=== PATIENT | male | born 1935 | race Caucasian/White ===

== ENCOUNTER 2017-07-12 12:30 | Outpatient (RCR) | payer MEDICARE, SELFPAY ==
--- NOTE | 2017-07-09 14:51 | HP.PTEVAL ---
Patient's Visit Information DANYELLE MCKEON is a 82 year old M referred to Physical Therapy by Raji Xavier MD with a diagnosis of LBP muscular. Date of Evaluation: 07/09/17 Physical Therapist: MARTINA RandT, OC - Visit Plan Frequency: 2x /Week Duration: 2-4 Weeks Plan: 2x/week for 2-4 weeks for ... 1. STM and thermal US to L upper gluteal tender area. 2. Stretch same with LB ROM and progress to HEP. 3. Strengthening L gluts and abductors and progress to EHP. - Subjective Subjective: Hurt back in April as he was on top of the camper sitting on knees chiseling for 3 hours. Coulldcarol make it in the house that day. Saw Dr. Xavier and sent for PT buit did not come. Saw chiropractor and it got better and he got the flu for 4 weeks lying on back. One spot remains in LB L buttock. Sitting and transferring and getting in and out of car really hurts. Sitting is not a problem. It can get worse wit walking more than a half mile. Sleeping is painful to roll over, can wake him up when he rolls. Activities are normal but has admittedly been inactive due to the flu. Worked in shop 4 hours the other day, got tired quick and back hurt a little bit. 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 Pain up to 0-3/10 in last few days. No numbness or tingling complaints in legs. Coughing or sneezing are OK. No pain meds. Xrays were OK. No other health problems, Hearts and lungs are OK. Had CABGx2. Had 3 strokes. 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 No f/u scheduled. - Objective Patient walks back to [facility] room I and without antalgia. Has some minor discomfort getting out of chair and bed transfers llifting hips. L/S aROM ext mod limited, flexion min limited, SB min limited all without pain. reflexes 2/3 patella and achilles. Sensation WNL to gross light touch in LE. Strength LE 4/5, glutesd 4- B no pain. Tender to touch L upper gluteal muscular origin on pelvis max. - L/S compression, - PA testing in LB. - Goals Goal 1:: Pain 99% improved and gone from L LB Goal Time Frame: 2-4 Weeks Goal 2:: No tenderness in L upper gluteal area. Goal Time Frame: 2-4 Weeks Goal 3:: Patient sleep without waking at night Goal Time Frame: 2-4 Weeks - Rehabilitation Potential Physical Therapy Diagnosis: Gluteal strain, muscular. Rehabilitation Potential: Fair - Anticipated Interventions Patient/Client Instruction: Educate patient on: Condition, Plan of Care For the Purpose of:: To decrease pain, To improve ability of physical actions for home/community/work/leisure Therapeutic Exercise to Include: Strength training, Flexibilty training, Passive ROM, Active ROM For the Purpose of:: To decrease pain, To improve nutrient delivery to tissue, To increase oxygenation perfusion, To improve ability of physical actions for home/community/work/leisure Manual Therapy Techniques to Include: Soft tissue mobilization For the Purpose of:: To decrease pain, To improve nutrient delivery to tissue Ultrasound (thermal/non thermal): Yes - thermal L glut For the Purpose of:: To improve nutrient delivery to tissue Thank you for the opportunity to evaluate your patient. For Medicare and Medicare HMO plans, please review the plan of care and approve it. It will need to be FAXED BACK to us at [phone] for Medicare purposes. Please let me know if there are questions or concerns regarding this plan of care. Physician Signature: Date:
--- NOTE | 2017-10-12 09:52 | HP.PT.NRP ---
HP - Discharge Summary (1) - Patient Information DANYELLE MCKEON was seen in my office for initial evaluation on 07/09/17. The following Plan of Care was established for this patient: Initial Frequency: 2x /Week Initial Duration: 2-4 Weeks - Anticipated Interventions Patient/Client Instruction: Educate patient on: Condition, Plan of Care For the Purpose of:: To decrease pain, To improve ability of physical actions for home/community/work/leisure Therapeutic Exercise to Include: Strength training, Flexibilty training, Passive ROM, Active ROM For the Purpose of:: To decrease pain, To improve nutrient delivery to tissue, To increase oxygenation perfusion, To improve ability of physical actions for home/community/work/leisure Manual Therapy Techniques to Include: Soft tissue mobilization For the Purpose of:: To decrease pain, To improve nutrient delivery to tissue Ultrasound (thermal/non thermal): Yes - thermal L glut For the Purpose of:: To improve nutrient delivery to tissue This patient was last seen in our office 07/12/17. Pertinent comments regarding their Physical therapy will appear below: Pt seen 2 visits of his plan of care. He cancelled the rest of it as he was feeling good and not having any more pain. At this point, I will discontinue due to nonattendance. At this point I will be discontinuing this patient from physical therapy. I would be happy to see this patient again in the future if found appropriate by the physician. Thank you! Manas Chinchilla, DPT, OC
== END 2017-07-12 19:00 | disposition home or self-care (01) ==
LOC: PT 12:30
PROVIDERS: Family Provider Family Medicine; PCP Family Medicine; Visit Provider Family Medicine
DX: M54.5 Low back pain (principal)
CPT/HCPCS: 97035; 97110; 97162

== ENCOUNTER 2017-08-25 10:35 | Emergency (ER) | payer MEDICARE, SELFPAY ==
[2017-08-25 10:36] VITALS: BP 116/74; PULSE 72; RESP 14; TEMP 36.4; O2SAT 93; BMI 28.6
--- NOTE | 2017-08-25 11:20 | RAD_ITS ---
STUDY: X-RAY - LEFT HAND, ATTENTION FIFTH FINGER REASON FOR EXAM: Male, 82 years old. Laceration TECHNIQUE: Three view(s) of the finger were obtained. COMPARISON: None. FINDINGS: Bones: There is cortical disruption in the mid shaft of the distal phalanx. Joints: The visualized joints are unremarkable. Soft tissues: Soft tissue swelling is present. There are faint radiopaque densities in the distal soft tissues. Foreign body: None RAD/Finger(s) Min 2 Views IMPRESSION: There is osseous involvement in the mid shaft of the fifth distal phalanx. There are faint radiopaque densities in the distal soft tissues. Electronically Signed: Sherron Vital MD at 11:47 EDT Tel Direct: [phone], Service support ,
[2017-08-25] MEDS: Bupivacaine Mpf 0.5% 30 ML VIAL INFILT (11:49)
[2017-08-25] MEDS: Diphth,Pertuss(Acell),Tet Vac 0.5 ML Vial IM (11:49)
--- NOTE | 2017-08-25 11:57 | ED.VISSUMM ---
- ER Visit Summary Date of Service: 08/25/17 Chief Complaint: Left fifth finger injury History of Present Illness: The patient is a 82 M who cut his left fifth finger on a table saw this morning. Patient is right-hand dominant. He does not know his last tetanus update. He is currently on Plavix. Physical Examination: Vital signs are unremarkable. Head neck examination is unremarkable with no sign of trauma. Heart is regular rate and rhythm. Left upper extremity examination reveals an irregular laceration to the distal radial aspect of the left fifth finger. Nail is intact. He has full range of motion, normal cap refill distally, and normal sensation. Test Results: Left fifth finger x-rays reveal fracture of the fifth distal phalanx. There is faint radiopaque densities in the distal soft tissues. Emergency Department Course and Treatment: Tetanus update is provided. Digital block is performed with 50-50 mix of lidocaine and bupivacaine. Wound is thoroughly irrigated. Skin is closed as best as possible with 7 simple interrupted sutures of 5-0 nylon. Much of the tissue is macerated and will not hold stitch. Surgifoam was placed over the wound followed by gauze dressing and AlumaFoam splint. Patient will be treated with antibiotics. He is to follow-up in 3-4 days for a wound check. Treatment Plan: [] Disposition: Discharge Impression: 1. Open fracture left fifth finger 2. Left fifth finger laceration status post suture This note was generated with 1calendar dictation software. It may contain incorrect words, spelling, and punctuation that were not noted in review of the chart prior to signing ED Disposition - Plan for ED Patient: Disposition: Home or Assisted Living Chief Complaint: Laceration Instructions: ED Fx Finger Open Prescriptions: Cephalexin [Keflex] 500 mg PO Q6 #40 capsule Referrals: Raina Rae MD [Primary Care Provider] - 3-5 Days
[2017-08-25 12:06] VITALS: BP 118/72; PULSE 82; RESP 16; O2SAT 98
== END 2017-08-25 12:13 | disposition home or self-care (01) ==
PROVIDERS: Emergency Provider Emergency Medicine; Family Provider Internal Medicine; PCP Internal Medicine
DX: S62.637B Displaced fracture of distal phalanx of left little finger, initial encounter for open fracture (principal); S61.217A Laceration without foreign body of left little finger without damage to nail, initial encounter; W31.2XXA Contact with powered woodworking and forming machines, initial encounter; Y93.9 Activity, unspecified; Y92.9 Unspecified place or not applicable; I25.10 Atherosclerotic heart disease of native coronary artery without angina pectoris; I10 Essential (primary) hypertension; E03.9 Hypothyroidism, unspecified; Z79.01 Long term (current) use of anticoagulants; Z79.899 Other long term (current) drug therapy; Z87.891 Personal history of nicotine dependence
CPT/HCPCS: 12001; 73140; 90715; 99283

== ENCOUNTER 2017-09-03 08:44 | Observation (INO) | payer MEDICARE, SELFPAY ==
[2017-09-03] VITALS (13 sets, daily range): BP systolic 101–121; BP diastolic 59–72; PULSE 57–74; RESP 10–18; TEMP 35.8–36.7; O2SAT 93–97; BMI 30.6; BMI 28.7
--- NOTE | 2017-09-03 09:01 | NURSING ---
NO LW OR POA
--- NOTE | 2017-09-03 09:07 | CT_ITS ---
STUDY: CT BRAIN WITHOUT CONTRAST REASON FOR EXAM: Male, 82 years old. Unresponsive RADIATION DOSAGE (If Supplied By Facility): CTDIvol = ( 44.99 ) mGy, DLP = ( 762.36 ) mGycm TECHNIQUE: Transaxial CT imaging of the brain was performed without administration of intravenous contrast material. Individualized dose optimization techniques were used for this CT. COMPARISON: 2015 FINDINGS: Normal soft tissue structures. Normal calvarium. There is mild cerebral atrophy with widening of the extra-axial spaces and ventricular dilatation. There are areas of decreased attenuation within the white matter tracts of the supratentorial brain, consistent with microvascular disease changes. Old lacunar infarct in the left basal ganglia Normal brainstem. Normal cerebellum. Stable vascular calcifications There is no intracranial hemorrhage. There are no findings of an acute ischemic infarction. Normal visualized paranasal sinuses. CT/Brain/Head without Contrast IMPRESSION: Chronic involutional changes of the brain. No acute hemorrhage or significant interval change Electronically Signed: Emmanuel Fierro MD at 9:48 EDT , Service support ,
--- NOTE | 2017-09-03 09:07 | EKG12_ITS ---
Test Reason : SYNCOPE Blood Pressure : / mmHG Vent. Rate : 062 BPM Atrial Rate : 062 BPM P-R Int : 196 ms QRS Dur : 108 ms QT Int : 410 ms P-R-T Axes : 033 -48 071 degrees QTc Int : 416 ms Sinus rhythm with Premature atrial complexes Left anterior fascicular block Abnormal ECG Confirmed by CALI PEREZ, JESSEE ([id number]), medical editor DEBORA LAMAR ([id number]) on 09/04/2017 1:15:23 PM Referred By: DONNA Confirmed By:JESSEE LEIVA MD
--- NOTE | 2017-09-03 09:07 | RAD_ITS ---
STUDY: X-RAY CHEST REASON FOR EXAM: Male, 82 years old. Chest pain, syncope TECHNIQUE: Single AP portable view of the chest. COMPARISON: 06/12/2017 FINDINGS: EKG leads overlie the chest Lungs are expanded with lingular opacification suggesting atelectasis though infiltrate cannot be excluded. No demonstrated effusion, follow-up recommended to assure resolution. Sternal cerclage wires and vascular clips are present from a prior sternotomy and coronary artery bypass graft procedure (CABG). Normal mediastinum and diane. Normal visualized pulmonary arteries. Normal visualized aortic arch and descending thoracic aorta. Normal visualized thoracic spine. Normal visualized ribs, clavicles, and shoulders. There is no demonstrated abnormality of the visualized soft tissue structures of the upper abdomen. RAD/Chest 1 View (Portable) IMPRESSION: Lingular opacification suggests atelectasis or infiltrate. Follow-up recommended to assure resolution Electronically Signed: Emmanuel Fierro MD at 9:49 EDT , Service support ,
--- NOTE | 2017-09-03 09:11 | ED.VISSUMM ---
- ER Visit Summary Date of Service: 09/03/17 Chief Complaint: Unresponsive episode History of Present Illness: The patient is a 82 M that had an unresponsive episode this morning. The patient was following up to have sutures removed from a fingertip avulsion on his left hand. He had a lot of pain does not remember passing out. He was unresponsive for several minutes and then woke up spontaneously. It sounds like the clinic staff may have been doing CPR on him. I am unsure if he had a pulse or not. EMS did note some snoring respirations, but he regained consciousness spontaneously. His King score was negative and his blood sugar was normal. The patient says he never had anything like this in the past. He had no other symptoms leading up to this and he has no symptoms now. He does have a history of coronary disease and stroke. 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 Physical Examination: Blood pressure 101/72. Family states this is his baseline. Otherwise vitals unremarkable. He is alert and oriented. No acute distress. Head atraumatic. Cranial nerves grossly intact. Heart regular. Lungs clear. Abdomen soft. He has a left index finger tip avulsion with a scab and [address]. No sign of overlying infection. Moves all extremities, no focal or lateralizing neurologic abnormalities on exam. Test Results: EKG showed sinus rhythm at a rate of 62. No sign of acute ischemia or infarction pattern. Will check chest x-ray, CT head, labs, troponin, and orthostatics. Emergency Department Course and Treatment: Sutures were removed from his left fingertip wound site. He was placed on a monitor. IV in place. Will evaluate for syncope. Workup was unremarkable. Patient remained stable. No new or worsening symptoms. Given his syncope and history of coronary disease, I called the hospitalist for admission. Treatment Plan: As above Disposition: Admission Impression: 1. Syncopal episode This note was generated with [employer] dictation software. It may contain incorrect words, spelling, and punctuation that were not noted in review of the chart prior to signing ED Disposition - Plan for ED Patient: Disposition: Acute Care Hospital [facility] Chief Complaint: Syncope
--- NOTE | 2017-09-03 09:14 | ED.DCSUM_ITS ---
- ER Visit Summary Date of Service: 09/03/17 Chief Complaint: Unresponsive episode History of Present Illness: The patient is a 82 M that had an unresponsive episode this morning. The patient was following up to have sutures removed from a fingertip avulsion on his left hand. He had a lot of pain does not remember passing out. He was unresponsive for several minutes and then woke up spontaneously. It sounds like the clinic staff may have been doing CPR on him. I am unsure if he had a pulse or not. EMS did note some snoring respirations , but he regained consciousness spontaneously. His Center score was negative and his blood sugar was normal. The patient says he never had anything like this in the past. He had no other symptoms leading up to this and he has no symptoms now. He does have a history of coronary disease and stroke. 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 Physical Examination: Blood pressure 101/72. Family states this is his baseline. Otherwise vitals unremarkable. He is alert and oriented. No acute distress. Head atraumatic. Cranial nerves grossly intact. Heart regular. Lungs clear. Abdomen soft. He has a left index finger tip avulsion with a scab and [address]. No sign of overlying infection. Moves all extremities, no focal or lateralizing neurologic abnormalities on exam. Test Results: EKG showed sinus rhythm at a rate of 62. No sign of acute ischemia or infarction pattern. Will check chest x-ray, CT head, labs, troponin , and orthostatics. Emergency Department Course and Treatment: Sutures were removed from his left fingertip wound site. He was placed on a monitor. IV in place. Will evaluate for syncope. Workup was unremarkable. Patient remained stable. No new or worsening symptoms. Given his syncope and history of coronary disease, I called the hospitalist for admission. Treatment Plan: As above Disposition: Admission Impression: 1. Syncopal episode This note was generated with [employer] dictation software. It may contain incorrect words, spelling, and punctuation that were not noted in review of the chart prior to signing ED Disposition - Plan for ED Patient: Disposition: Acute Care Hospital [facility] Chief Complaint: Syncope
[2017-09-03 09:25] LABS: Hematocrit 43.8 % (40-54); Hemoglobin 14.9 g/dl (13.0-16.5); Mean Corpuscular Hgb 33.2 pg (27.0-32.0); Mean Corpuscular Volume 97.6 fL (80-94); Mean Platelet Vol. 9.8 fl (6.2-12.0); Platelet Count 199 K/mm3 (150-450); RBC Distribution Width CV 16.3 % (11.6-14.6); RBC Distribution Width SD 56.6 fl (35.1-43.9); Red Blood Count 4.49 M/mm3 (4.6-6.2); White Blood Count 8.7 K/mm3 (4.4-11.0)
[2017-09-03 09:26] LABS: Differential Indicated MANUAL DIFF; POSITIVE COUNT NO; POSITIVE DIFFERENTIAL NO; POSITIVE MORPHOLOGY YES
[2017-09-03 09:41] LABS: Anion Gap 8 (5-15); BUN 20 mg/dL (7-18); BUN/Creat Ratio 15.4 RATIO (10-20); Calcium,Total 8.4 mg/dL (8.5-10.1); Chloride 105 mmol/L (98-107); EST Glomerular Filtration Rate 56 mL/min (>60); Est Glom Filt Rate - Afr Amer 68 mL/min (>60); Estimated Creatinine Clearance 40.25 ml/min; Glucose 92 mg/dL (74-106); Potassium 3.7 mmol/L (3.5-5.1); Sodium Level 141 mmol/L (136-145)
[2017-09-03 10:09] LABS: Eosinophil 2 % (0-5); Lymphocyte 25 % (19-41); Monocyte 7 % (0-10); Myelocyte 2 (0-0); Neutrophil-Band 6 % (0-5); Neutrophil-Segmented 58 % (47-70); Total Cells Counted 100 (MANUAL DIFF)
[2017-09-03 10:10] LABS: Platelet Estimate ADEQUATE (ADEQ); Red Cell Morphology NORM C+C NORMAL (NORM C&C)
[2017-09-03 10:12] LABS: Absolute Lymphocyte Count 2.18 X10^3/ul (0.83-4.51); Absolute Neutrophil Count 5.6 X10^3/uL (2.0-7.7); Lymphocyte # 2.18 X10^3/ul (4.0); Neutrophil # 5.57 X10^3/uL (2.7-7.7)
--- NOTE | 2017-09-03 11:14 | NURSING ---
DR YOEL GUTIERREZ
--- NOTE | 2017-09-03 11:26 | NURSING ---
PCU UNRESPONSIVE YOEL
--- NOTE | 2017-09-03 12:07 | ECHOD_ITS ---
Version 2 Reason For Study: Unresponsive Procedure This was a 2D Doppler, Color Flow transthoracic echocardiogram. The study was technically difficult. Exam performed portable in patient room. Left Ventricle Normal LV size. Mild concentric left ventricular hypertrophy. Left ventricular systolic function is normal. The estimated ejection fraction is 65 %. Transmitral and pulmonary venous doppler flow suggestive of elevated left atrial pressure. No regional wall motion abnormalities noted. Right Ventricle Normal RV size. Normal systolic function. Atria Normal left atrium. Normal right atrium. Mitral Valve Normal mitral valve. Tricuspid Valve Normal tricuspid valve. Aortic Valve Normal aortic valve. Trisinus/trileaflet aortic valve. Pulmonic Valve Normal pulmonic valve. Great Vessels Normal aortic root. The pulmonary artery is normal size. Normal inferior vena cava. Pericardium/Pleural No pericardial effusion. Medication Definity0.4ml given slow IV push to enhance endocardial definition. MMode/2D Measurements & Calculations LVIDd: 3.7 cm IVSd: 1.3 cm Ao root diam: 3.6 cm LVIDs: 2.6 cm LVPWd: 1.2 cm LA dimension: 3.9 cm FS: 29.5 % LAV(MOD-bp): 49.8 ml LAV(MOD-bp) Indexed: 25.6 ml/m2 LA A4 area: 16.8 cm2 RA A4 area: 15.0 cm2 LAV(MOD-sp2): 48.8 ml LAV(MOD-sp4): 47.1 ml Doppler Measurements & Calculations MV E max yuval: 53.3 cm/sec Lat Peak E' Yuval: 9.0 cm/sec Med Peak E' Yuval: 5.6 cm/sec MV A max yuval: 65.4 cm/sec E/E' lat: 5.9 E/E' med: 9.5 MV E/A: 0.82 Ao V2 max: 109.9 cm/sec LV V1 max: 84.5 cm/sec PA V2 max: 81.7 cm/sec Ao max P.8 mmHg LV V1 max P.9 mmHg Ao V2 mean: 81.1 cm/sec Ao mean P.8 mmHg Ao V2 VTI: 23.3 cm TR max yuval: 211.6 cm/sec TR max P.9 mmHg Interpretation Summary Normal LV size. Mild concentric left ventricular hypertrophy. Left ventricular systolic function is normal. The estimated ejection fraction is 65 %. Transmitral and pulmonary venous doppler flow suggestive of elevated left atrial pressure. Contrast injection was performed. Ordering Physician: Abdulkadir Ferrell Referring Physician: Raina Rae Performed By: Soledad Bernardo, ASHERCS, RVT
[2017-09-03] MEDS: 0.9% Normal Saline 1,000 ML 100 ML IV ×2 (12:32→21:35)
--- NOTE | 2017-09-03 13:29 | PCM.HP.STD ---
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 Patient went to his PCP office for removal of left little finger stitch removal. Patient felt severe pain while sutures were getting removed, felt funny and then passed out. Patient denied any prodromal symptoms including chest pain or shortness of breath. His blood pressure was low, systolic 102 mmHg which usually is low but in 110s. As per the EMS note, patient was found pulseless and unresponsive and chest compression: CPR was started for short period of time EMS EKG shows sinus bradycardia 60/min. In ER, EKG shows normal sinus rhythm with PACs and left anterior fascicular block at 62 bpm. Earlier, he was in [place] August 25, 2017 whenon he had injury of his little finger with saw and wound was sutured. Left finger x-ray shows small cortical defect of distal phalanx of little finger Past Medical History Past Medical History (Chronic Problems): Chronic Problems Hyperlipidemia (Chronic) H/O: pituitary tumor (Chronic) History of remote Benign tumor status post resection and radiation therapy CAD (coronary artery disease) (Chronic) Panhypopituitarism (Chronic) On chronic steroid therapy for 30 years Hypothyroidism (Chronic) Hypertension (Chronic) Allergies atorvastatin calcium [From Lipitor] Allergy (Verified 09/03/17 08:51) LEG CRAMPS legs cramped shrimp Allergy (Verified 09/03/17 08:51) Hives Home Medications: Ambulatory Orders Medication Instructions Recorded Levothyroxine [Synthroid] 88 mcg PO DAILY 08/19/13 Tamsulosin HCl [Flomax] 0.4 mg PO DAILY 08/19/13 Albuterol Inhaler [Ventolin Hfa] 1 - 2 puff INHALATION Q4H PRN PRN 06/12/17 #1 inhaler Clopidogrel Bisulfate [Clopidogrel] 75 mg PO DAILY 06/12/17 Finasteride [Proscar] 5 mg PO DAILY 06/12/17 Prednisone 5 mg PO DAILY 06/12/17 Rosuvastatin Calcium 40 mg PO QHS 06/12/17 Cephalexin [Keflex] 500 mg PO Q6 09/03/17 Multivit-Min/FA/Lycopen/Lutein 1 each PO DAILY 09/03/17 [Centrum Silver Men Tablet] Vitamin E 400 units PO DAILY 09/03/17 Surgical History: coronary bypass surgery, herniorrhaphy, tonsillectomy, - - pituitary surgery, hernia surgery, CABG. Psychiatric History: No pertinent psych hx Smoking Status: Former smoker - *Family History Maternal History Items: Diabetes, Heart Disease Paternal History Items: No pertinent history Review of Systems Constitutional: Denies: Chills, Fever, Weight Change HEENT: Denies: Head Aches, Sinus Congestion, Sinus Drainage Cardiovascular: Denies: Chest Pain, Palpitations Respiratory: Denies: Cough, Shortness of breath at rest, Sputum production Gastrointestinal: Denies: Abdominal Pain, Nausea, Vomiting Genitourinary: Denies: Dysuria Musculoskeletal: Reports: Joint Tenderness - Left finger. Denies: Joint Pain Skin: Denies: Rash, Wounds Neurological: Denies: Numbness, Tingling, Focal weakness Psychiatric: Denies: Anxiety, Depression, Homicidal Ideations, Suicidal Ideations Hematologic/ Lymphatic: Denies: Easy Bruising, Easy Bleeding VTE Information - Inpt Only VTE Present on Admission: No VTE Mechan Device Prophylaxis: SCD's VTE Pharm Prophylaxis ordered?: Yes Patient Problems: Active and Suspected Problems Syncope and collapse (Acute) - Physical Exam General: Alert, Oriented x3, Cooperative HEENT: Atraumatic, PERRLA, EOMI, Normocephalic Neck: Supple, No JVD, Negative Carotid Bruits Lungs: Clear to auscultation, Normal air movement, No rhonchi, No wheeze, No rales Cardiovascular: Regular rate, Regular Rhythm, Normal S1, Normal S2, No murmurs Abdomen: Bowel Sounds Present, Soft, Non Tender, Non-Distended Extremities: No edema, Capillary Refill Less than 3 Seconds Skin: No rashes, No breakdown Musculoskeletal: No Tenderness to Palpation of Joints or Extremities Neurological: Cranial nerves II-XII grossly intact Psych/Mental Status: Normal Affect, Appropriate Vital Signs Temp Pulse Resp BP Pulse Ox 98.0 F 58 L 18 114/68 94 09/03/17 12:28 09/03/17 12:37 09/03/17 12:28 09/03/17 12:30 09/03/17 12:28 Oxygen Delivery Method Room Air Weight: 183 lb 6.793 oz Body Mass Index (BMI) 28.7 Laboratory Tests Past 24 Hrs 09/03/17 12:55 Troponin I Pending Assessment/Plan Active and Suspected Problems Syncope and collapse (Acute) The patient is a 82 year old M with multiple comorbidities including coronary artery disease status post two-vessel CABG in August 2013, history of ischemic stroke, last admission in December 2014 for left MCA stroke, hypopituitarism status post benign tumor resection was brought in by ambulance to ER for unresponsiveness. Patient went to his PCP office for removal of left little finger stitch removal. Patient felt severe pain while sutures were getting removed, felt funny and then passed out. Patient denied any prodromal symptoms including chest pain or shortness of breath. His blood pressure was low, systolic 102 mmHg which usually is low but in 110s. As per the EMS note, patient was found pulseless and unresponsive and chest compression: CPR was started for short period of time EMS EKG shows sinus bradycardia 60/min. In ER, EKG shows normal sinus rhythm with PACs and left anterior fascicular block at 62 bpm. Earlier, he was in [place] August 25, 2017 whenon he had injury of his little finger with saw and wound was sutured. Left finger x-ray shows small cortical defect of distal phalanx of little finger 1. Unresponsive suggestive of syncope and collapse with possible cardiac arrest status post CPR: Currently, patient is asymptomatic. Orthostatic vitals in the ER was negative. The patient is admitted in PCU. On cardiac catheterization technician, on IV fluid normal saline. Serial cardiac enzymes. 2D echo and carotid Doppler ordered. TSH and free T4 ordered. Recent left middle finger injury with saw: There is dry scab at the site of injury. Sutures were removed in the ER. Patient completed about 9 days of Keflex and does not need any further antibiotic. Left finger repeat x-ray ordered to compare with the original x-ray. Left finger splint. Wound care nurse consult. 2. Coronary artery disease status post two-vessel CABG, history of multiple ischemic stroke: As mentioned above 2D echo and carotid Doppler was ordered. Fasting lipid profile ordered. 3. 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 4. Other chronic comorbidities include hypertension, and dyslipidemia: Blood pressure is normotensive and was on lower side PCP office. Patient is not any antihypertensive medications. DVT prophylaxis: On Lovenox 40 mg subcu daily. Bilateral SCDs This note was generated with [employer] dictation software. Every effort was made to ensure accuracy, however computerized sales exec mistakes may persist. Code Visit OBSV E&M: 20633 Initial observation care L3
--- NOTE | 2017-09-03 13:55 | RAD_ITS ---
STUDY: X-RAY - LEFT HAND, ATTENTION FIFTH FINGER REASON FOR EXAM: Male, 82 years old. Laceration, fracture TECHNIQUE: 3 view(s) of the finger were obtained. COMPARISON: 08/25/2017 FINDINGS: No significant interval changes noted in the appearance of the previously described fracture in the waist of the distal phalanx of the fifth finger. There is again evidence of soft tissue laceration and punctate calcified bony fragments noted in the soft tissues. Alignment at the fracture site is anatomic, little significant healing has occurred since the previous study. RAD/Finger(s) Min 2 Views IMPRESSION: Little significant interval change in the appearance of a previously described fracture in the waist of the distal phalanx of the fifth finger. Electronically Signed: Emmanuel Fierro MD at 14:32 EDT , Service support ,
--- NOTE | 2017-09-03 14:00 | CDU_ITS ---
Reason For Study: SYNCOPE Rt. Velocities/BP Lt. Velocities/BP Prox CCA 87.9/9.38 cm/sec. Prox CCA 113.0/7.62 cm/sec. Mid CCA 66.8/11.1 cm/sec. Mid CCA 90.9/11.1 cm/sec. Dist CCA 72.7/13.5 cm/sec. Dist CCA 75.6/10.6 cm/sec. Prox ICA 49.5/13.4 cm/sec. Prox ICA 78.6/14.1 cm/sec. Mid ICA 65.6/19.3 cm/sec. Mid ICA 65.7/17.6 cm/sec. Dist ICA 89.7/24.0 cm/sec. Dist ICA 80.9/20.5 cm/sec. Rt. ICA/CCA = 89.7/66.8=1.3. Lt. ICA/CCA = 80.9/90.9=0.89. Prox ECA 133.0/8.79 cm/sec. Prox ECA 122.0/7.07 cm/sec. Rt. Vert. 38.8/9.05 cm/sec. Lt. Vert. 40.5/7.38 cm/sec. Right Extracranial There is intimal thickening but no significant atherosclerotic plaque noted in the right common carotid artery. There is heterogeneous, smooth atherosclerotic plaque noted in the right internal carotid artery. There is intimal thickening but no significant atherosclerotic plaque noted in the right external carotid artery. Antegrade flow is noted in the right vertebral artery. Left Extracranial There is intimal thickening but no significant atherosclerotic plaque noted in the left common carotid artery. There is heterogeneous, smooth atherosclerotic plaque noted in the left internal carotid artery. There is no significant atherosclerotic plaque noted in the left external carotid artery. Antegrade flow is noted in the left vertebral artery. Procedure Carotid Duplex [id number]. The exam was diagnostic. Exam performed portable in patient room. Interpretation Summary Calcific plague at the proximal bilateral internal carotid with <50% stenosis. Normal flow bilateral external carotids. Patent and antegrade vertebrals bilaterally. Ordering Physician: Abdulkadir Ferrell Referring Physician: Raina Rae Performed By: Emilia Batres, KRISTI, RVT
[2017-09-03 14:32] LABS: Magnesium 2.5 mg/dL (1.6-2.6)
--- NOTE | 2017-09-03 14:41 | CHAPLAIN ---
Type of Pastoral Visit _x__ Initial Visit ___ Follow-up Visit ___ On-call Visit ___ General Patient Visit ___ Spiritual Assessment ___ Family Conference ___ Bereavement ___ Rapid Response ___ Code Blue ___ Other (describe below) Pastoral Care Referral From ___ Patient _x__ Family ___ Nurse ___ Physician ___ Engagement Mgr ___ Analytic Manager ___ Other (describe below) Sacrament/Intervention _x__ Active listening ___ Anointing ___ Judaism ___ Bereavement ___ Communion ___ Nevin exploration ___ ___ Life review _x__ Prayer ___ Reconciliation ___ Sacrament of Sick _x__ Supportive presence ___ Wedding ___ Other (describe below) Pastoral Comments met spouse of patient in [facility] who described the surprise around the sudden illness for patient; pt has recovered quickly and spouse is thankful; then introduction to patient who reports not remembering anything but doing fine; pt accepts a prayer as more family members arrive to visit
[2017-09-03] MEDS: BACITRACIN 15 GM Tube 1 APPLIC TOPICAL ×2 (15:10→21:27)
[2017-09-03] MEDS: CLARIFY ORDER NOTE (15:10)
[2017-09-04 03:40] VITALS: PULSE 54
[2017-09-04 03:42] VITALS: BP 123/62; PULSE 60; RESP 18; TEMP 36.2; O2SAT 94
[2017-09-04] MEDS: Levothyroxine 88 MCG Tablet PO (04:25)
[2017-09-04] MEDS: BACITRACIN 15 GM Tube 1 APPLIC TOPICAL (04:25)
[2017-09-04] MEDS: 0.9% Normal Saline 1,000 ML 100 ML IV (06:27)
[2017-09-04 06:57] LABS: Cholesterol 136 mg/dL (200); High Density Lipoprotein 49 mg/dL; T4 Free Direct 0.83 ng/dL (0.76-1.46); Thyroid Stim Hormone (TSH) 1.08 uIU/mL (0.358-3.74); Triglycerides 133 mg/dL; Very Low Density Lipoprotein 27 mg/dL (5-40)
[2017-09-04 07:00] VITALS: PULSE 59
[2017-09-04 08:31] LABS: Pathologist Review Reviewed
[2017-09-04 09:20] VITALS: BP 106/59; PULSE 59; RESP 14; TEMP 36.8; O2SAT 92
[2017-09-04] MEDS: Vitamin E 400 UNITS Capsule PO (09:22)
[2017-09-04] MEDS: Finasteride 5 MG Tablet PO (09:22)
[2017-09-04] MEDS: predniSONE 5 MG Tablet PO (09:23)
[2017-09-04] MEDS: Multivitamins,Ther W-Minerals Tablet 1 TABLET PO (09:23)
[2017-09-04] MEDS: Clopidogrel Bisulfate 75 MG Tablet PO (09:23)
[2017-09-04] MEDS: Tamsulosin HCl 0.4 MG Capsule PO (09:23)
--- NOTE | 2017-09-04 10:51 | PCM.DC ---
- Discharge Diagnoses Current Active Problems: Current Active and Chronic Problems Syncope and collapse (Acute) You will use the following diet at home:: Cardiac Discharge Activity: May not drive while taking narcotic pain medications. Additional Instructions: Bacitracin ointment 3 times daily over left little finger for 7 days Allergies/Adverse Reactions: Allergies atorvastatin calcium [From Lipitor] Allergy (Verified 09/03/17 08:51) LEG CRAMPS legs cramped shrimp Allergy (Verified 09/03/17 08:51) Hives Medications to take at Discharge Levothyroxine [Synthroid] 88 mcg PO DAILY 08/19/13 Tamsulosin HCl [Flomax] 0.4 mg PO DAILY 08/19/13 Albuterol Inhaler [Ventolin Hfa] 1 - 2 puff INHALATION Q4H PRN PRN #1 inhaler 06/12/17 Clopidogrel Bisulfate [Clopidogrel] 75 mg PO DAILY 06/12/17 Finasteride [Proscar] 5 mg PO DAILY 06/12/17 Prednisone 5 mg PO DAILY 06/12/17 Rosuvastatin Calcium 40 mg PO QHS 06/12/17 Multivit-Min/FA/Lycopen/Lutein [Centrum Silver Men Tablet] 1 each PO DAILY 09/03/17 Vitamin E 400 units PO DAILY 09/03/17 Bacitracin Ointment 1 applic TOPICAL TID 7 Days #1 tube 09/04/17 The following prescriptions were given: Bacitracin Ointment 1 applic TOPICAL TID 7 Days #1 tube Primary Care Physician: Raina Rae MD [Primary Care Provider] - Please follow up with your Primary Care Physician in: in 2 weeks
--- NOTE | 2017-09-04 10:52 | DS.PCM_ITS ---
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 Patient went to his PCP office for removal of left little finger stitch removal. Patient felt severe pain while sutures were getting removed, felt funny and then passed out. Patient denied any prodromal symptoms including chest pain or shortness of breath. His blood pressure was low, systolic 102 mmHg which usually is low but in 110s. As per the EMS note, patient was found pulseless and unresponsive and chest compression: CPR was started for short period of time EMS EKG shows sinus bradycardia 60/min. In ER, EKG shows normal sinus rhythm with PACs and left anterior fascicular block at 62 bpm. Earlier, he was in ER on August 25, 2017 whenon he had injury of his little finger with saw and wound was sutured. Left finger x-ray shows small cortical defect of distal phalanx of little finger [] General: Alert, Oriented x3, Cooperative HEENT: Atraumatic, PERRLA, EOMI, Normocephalic Neck: Supple, No JVD, Negative Carotid Bruits Lungs: Clear to auscultation, Normal air movement, No rhonchi, No wheeze, No rales Cardiovascular: Regular rate, Regular Rhythm, Normal S1, Normal S2, No murmurs Abdomen: Bowel Sounds Present, Soft, Non Tender, Non-Distended Extremities: No edema, Capillary Refill Less than 3 Seconds Skin: No rashes, No breakdown Musculoskeletal: No Tenderness to Palpation of Joints or Extremities Neurological: Cranial nerves II-XII grossly intact Psych/Mental Status: Normal Affect, Appropriate 1. Unresponsive suggestive of syncope and collapse with possible cardiac arrest status post CPR: Currently, patient is asymptomatic. Orthostatic vitals in the ER was negative. The patient is admitted in PCU. On school lunch monitor rhythm was normal sinus rhythm. Patient was asymptomatic with no cardiopulmonary symptoms during hospital stay. Patient was treated with IV fluid normal saline. Serial troponin enzymes negative. 2D echo reported as mild concentric LVH with normal LV size and systolic function, EF 65%. No regional wall motion abnormality. Normal right and left atria. Carotid Doppler shows calcific plaque at proximal bilateral internal carotid arteries with less than 50% stenosis. TSH and free T4 within normal limit. Magnesium normal. Recent left middle finger injury with saw: There is dry scab at the site of injury. Sutures were removed in the ER. Patient completed about 9 days of Keflex and does not need any further antibiotic. Left finger repeat x-ray does not show any significant interval change. Alignment at the fracture site is anatomic total significant healing has occurred since the previous study Left finger splint. Wound care nurse, Caty consulted and advised bacitracin. 2. Coronary artery disease status post two-vessel CABG, history of multiple ischemic stroke: Fasting lipid profile within normal limits. 3. 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 4. Other chronic comorbidities include hypertension, and dyslipidemia: Blood pressure is normotensive and was on lower side PCP office. Patient is not any antihypertensive medications. DVT prophylaxis: On Lovenox 40 mg subcu daily. Bilateral SCDs This note was generated with [employer] dictation software. Every effort was made to ensure accuracy, however computerized pigment supplier mistakes may persist. Clinical Impression(s) from Imaging Studies Brain CT 09/03/17 09:07 IMPRESSION: Chronic involutional changes of the brain. No acute hemorrhage or significant interval change Electronically Signed: Emmanuel Fierro MD at 9:48 EDT , Service support , Chest X-Ray 09/03/17 09:07 IMPRESSION: Lingular opacification suggests atelectasis or infiltrate. Follow-up recommended to assure resolution Electronically Signed: Emmanuel Fierro MD at 9:49 EDT , Service support , Finger X-Ray 09/03/17 13:55 IMPRESSION: Little significant interval change in the appearance of a previously described fracture in the waist of the distal phalanx of the fifth finger. Electronically Signed: Emmanuel Fierro MD at 14:32 EDT , Service support , Discharge Activity: May not drive while taking narcotic pain medications. Home Medications: Medications to take at Discharge Levothyroxine [Synthroid] 88 mcg PO DAILY 08/19/13 Tamsulosin HCl [Flomax] 0.4 mg PO DAILY 08/19/13 Albuterol Inhaler [Ventolin Hfa] 1 - 2 puff INHALATION Q4H PRN PRN #1 inhaler Clopidogrel Bisulfate [Clopidogrel] 75 mg PO DAILY 06/12/17 Finasteride [Proscar] 5 mg PO DAILY 06/12/17 Prednisone 5 mg PO DAILY 06/12/17 Rosuvastatin Calcium 40 mg PO QHS 06/12/17 Multivit-Min/FA/Lycopen/Lutein [Centrum Silver Men Tablet] 1 each PO DAILY 09/03 Vitamin E 400 units PO DAILY 09/03/17 Bacitracin Ointment 1 applic TOPICAL TID 7 Days #1 tube 09/04/17 Following Prescrptions Were Given to Patient: Bacitracin Ointment 1 applic TOPICAL TID 7 Days #1 tube Primary Care Physician: Raina Rae MD [Primary Care Provider] - Please follow up with your Primary Care Physician in: in 2 weeks Medical Necessity - Tobacco Use Smoking Status: Former smoker Meaningful Use Info Meaningful Use Diagnoses (Choose all that apply): None applicable Code Visit OBSV E&M: 96012 Observation care discharge
--- NOTE | 2017-09-04 14:31 | NURSING ---
wound photo: late entry from 1100 left pinky finger
== END 2017-09-04 10:51 | disposition home or self-care (01) ==
LOC: ED 09:33 → PCU 11:54
PROVIDERS: Admitting Provider Internal Medicine; Emergency Provider Emergency Medicine; Family Provider Internal Medicine; PCP Internal Medicine; Visit Provider Internal Medicine
DX: R41.82 Altered mental status, unspecified (principal); E78.5 Hyperlipidemia, unspecified; E03.9 Hypothyroidism, unspecified; I25.10 Atherosclerotic heart disease of native coronary artery without angina pectoris; I10 Essential (primary) hypertension; E23.0 Hypopituitarism; R00.1 Bradycardia, unspecified; I44.4 Left anterior fascicular block; S62.637D Displaced fracture of distal phalanx of left little finger, subsequent encounter for fracture with routine healing; W27.8XXD Contact with other nonpowered hand tool, subsequent encounter; Z79.899 Other long term (current) drug therapy; Z79.02 Long term (current) use of antithrombotics/antiplatelets; Z79.52 Long term (current) use of systemic steroids; Z95.1 Presence of aortocoronary bypass graft; Z86.73 Personal history of transient ischemic attack (TIA), and cerebral infarction without residual deficits; Z87.891 Personal history of nicotine dependence
CPT/HCPCS: 36415; 70450; 71045; 73140; 80048; 80061; 83735; 84439; 84443; 84484; 85025; 93005; 93306; 93880; 96360; 96361; 97802; 99218; 99285; J7030; Q9957; A4216; C8929; G0378

== ENCOUNTER 2019-05-12 10:38 | Observation (INO) | payer MEDICARE, SELFPAY ==
[2018-10-24 08:26] VITALS: BMI 30.4
[2019-05-12] VITALS (12 sets, daily range): BP systolic 95–122; BP diastolic 54–67; PULSE 44–61; RESP 15–18; TEMP 36.3–36.9; O2SAT 94–98; BMI 31.1; BMI 30.7
--- NOTE | 2019-05-12 10:55 | EKG12_ITS ---
Test Reason : CP REPEAT Blood Pressure : / mmHG Vent. Rate : 054 BPM Atrial Rate : 054 BPM P-R Int : 198 ms QRS Dur : 106 ms QT Int : 408 ms P-R-T Axes : 046 -52 071 degrees QTc Int : 386 ms Sinus bradycardia Left anterior fascicular block Nonspecific T wave abnormality Abnormal ECG When compared with ECG of 12-MAY-2019 10:42, MANUAL COMPARISON REQUIRED, DATA IS UNCONFIRMED Confirmed by CALI PEREZ, JESSEE ([id number]), assignment desk editor SHANNON MEDINA ([id number]) on 05/13/2019 2:53:19 PM Referred By: Bessy Zavala Confirmed By:JESSEE LEIVA MD
[2019-05-12 11:07] LABS: Absolute Lymphocyte Count 1.99 X10^3/uL (0.83-4.51); Absolute Neutrophil Count 3.8 X10^3/uL (2.0-7.7); Basophil# 0.08 X10^3/uL; Basophil% 1.1 % (0-1); Eosinophil# 0.28 X10^3/uL; Eosinophils% 3.9 % (0-5); Hematocrit 47.8 % (40-54); Hemoglobin 16.2 g/dL (13.0-16.5); Lymphocyte # 1.99 X10^3/ul (4.0); Lymphocyte % 27.6 % (19-41); Mean Corp Hgb Conc 33.9 g/dL (32-36); Mean Corpuscular Hgb 33.4 pg (27.0-32.0); Mean Corpuscular Volume 98.6 fL (80-94); Mean Platelet Vol. 9.8 fl (6.2-12.0); Monocyte# 0.88 X10^3/uL; Monocyte% 12.2 % (0-10); NRBC Flagged by Analyzer 0 % (0-5); Neutrophil # 3.79 X10^3/uL (2.7-7.7); Neutrophil % 52.6 % (47-70); Platelet Count 191 K/mm3 (150-450); RBC Distribution Width CV 14.4 % (11.6-14.6); RBC Distribution Width SD 52.6 fl (35.1-43.9); Red Blood Count 4.85 M/mm3 (4.6-6.2); White Blood Count 7.2 K/mm3 (4.4-11.0)
--- NOTE | 2019-05-12 11:11 | RAD_ITS ---
STUDY: X-RAY CHEST REASON FOR EXAM: Male, 84 years old. Chest pain. TECHNIQUE: Single AP portable view of the chest. COMPARISON: Comparison is made with prior study dated September 03, 2017. FINDINGS: EKG electrodes are seen. Increased markings at the left lung base suggestive of atelectasis and/or infiltrate. This has improved as compared to prior study. Blunting of the left costophrenic angle. Sternal cerclage wires and vascular clips are present from a prior sternotomy and coronary artery bypass graft procedure (CABG). Normal mediastinum and daine. Normal visualized pulmonary arteries. There is atherosclerotic calcification of the aortic arch with tortuosity. Normal visualized thoracic spine. Normal visualized ribs, clavicles, and shoulders. There is no demonstrated abnormality of the visualized soft tissue structures of the upper abdomen. RAD/Chest 1 View (Portable) IMPRESSION: Increased markings at the left lung base. Follow-up is recommended. Electronically Signed: Spencer Garcia, at 11:28 EST , Service support ,
--- NOTE | 2019-05-12 11:12 | ED.DCSUM_ITS ---
- ER Visit Summary Date of Service: 05/12/19 Chief Complaint: Chest pain History of Present Illness: The patient is a 84 M presenting with chest pain. Patient states this started approximately 1 hour ago. Pain was midsternal. He had associated diaphoresis and nausea. He denies shortness of breath. He took one nitro at home. Following this he passed out. called EMS. On arrival to the ED his pain has resolved. Physical Examination: Vitals are stable. Blood pressure 95/54, heart rate 54 patient is afebrile. Alert no acute distress. HEENT exam is unremarkable. Neck is supple. Lungs are clear and equal bilaterally. Heart is regular and bradycardic Abdomen is soft nontender nondistended. Extremities are unremarkable. Skin is warm and dry. No focal neurologic deficit. Remainder of exam is unremarkable. Emergency Department Course and Treatment: EKG is sinus bradycardia rate of 52 with no acute ischemic changes. Patient was given aspirin on arrival. CBC, chemistries unremarkable other than BUN 24, creatinine 1.34. Troponin is negative. Chest x-ray shows increased markings at the left lung base. Follow- up is recommended. On reevaluation, patient is chest pain-free. Will discuss with the hospitalist for observation. Disposition: Observation Impression: Chest pain This note was generated with [employer] dictation software. It may contain incorrect words, spelling, and punctuation that were not noted in review of the chart prior to signing ED Disposition - Plan for ED Patient: Referrals: Raina Rae MD [Primary Care Provider] -
[2019-05-12 11:23] LABS: Anion Gap 6 (5-15); BUN 24 mg/dL (7-18); BUN/Creat Ratio 17.9 RATIO (10-20); Calcium,Total 8.7 mg/dL (8.5-10.1); Chloride 108 mmol/L (98-107); Creatinine, Serum 1.34 mg/dL (0.70-1.30); EST Glomerular Filtration Rate 54 mL/min (>60); Est Glom Filt Rate - Afr Amer 65 mL/min (>60); Estimated Creatinine Clearance 37.68 ml/min; Glucose 77 mg/dL (74-106); Potassium 3.6 mmol/L (3.5-5.1); Sodium Level 141 mmol/L (136-145)
--- NOTE | 2019-05-12 11:53 | PCM.HP.STD ---
Problem List (1) Chest pain Status: Acute Qualifiers: Chest pain type: unspecified Qualified Code(s): R07.9 - Chest pain, unspecified (2) Near syncope Status: Acute (3) Hypothyroidism Status: Chronic Qualifiers: Hypothyroidism type: unspecified Qualified Code(s): E03.9 - Hypothyroidism, unspecified (4) CVA (cerebral vascular accident) Status: Chronic Qualifiers: CVA mechanism: unspecified Qualified Code(s): I63.9 - Cerebral infarction, unspecified (5) History of pituitary tumor Status: Chronic (6) BPH (benign prostatic hyperplasia) Status: Chronic Qualifiers: Lower urinary tract symptom presence: unspecified whether lower urinary tract symptoms present Qualified Code(s): N40.0 - Benign prostatic hyperplasia without lower urinary tract symptoms (7) Essential (primary) hypertension Status: Chronic (8) H/O coronary artery bypass surgery Status: Resolved Comment: CABG x 2 -ALEGRE to LAD, SVG to PDA 08/22/13 (9) Atherosclerotic heart disease of [place] coronary artery without angina pectoris Status: Chronic Qualifiers: [place] vs. transplanted heart: [place] heart Qualified Code(s): I25.10 - Atherosclerotic heart disease of [place] coronary artery without angina pectoris Comment: CABG x 2 -ALEGRE to LAD, SVG to PDA 08/22/13 (10) Hyperlipidemia Status: Chronic Qualifiers: Hyperlipidemia type: pure hypercholesterolemia Qualified Code(s): E78.00 - Pure hypercholesterolemia, unspecified; E78.0 - Pure hypercholesterolemia History of Present Illness Date of Admission: 05/12/19 Chief Complaint: Chest pain, NG self administration with syncope The patient is a 84 y/o M w/ PMHx: CAD s/p CABG x 2 ALEGRE to LAD and SVG to PDA 2013, HTN, HLD, Hypothyroidism, Hx CVA, Hx Pituitary Tumor s/p resection and radiation on chronic steroid therapy, Hx PE who presents to the [facility] ED on 05/12/19 with history of onset of decided with radiation to the midsternal chest discomfort described as a dull aching, 5 out of 10 in severity with diaphoresis with no specific dyspnea, nausea or emesis occurring ultimately 1 hour prior to arrival with reported self administration of nitroglycerin at home following which she had near syncopal event with primarily diaphoresis onset following nitroglycerin and immediately called EMS as he was lethargic and had decreased responsiveness. Following EMS evaluation patient clinically improved and was felt to be at his baseline. Upon EMS evaluation patient noted resolution of chest discomfort. He does admit that he recently had injury to his right shoulder, fell hard on firm surface and has follow-up with orthopedic surgery coming up but has difficulty raising his arm at all. Notes that chest onset was while he was resting playing solitaire. Work-up in the ED included T 97.7, heart rate 44 noted to rise up to 54 while in the ED, BP 95/54, respiratory rate 15, 95% on room air, CBC with WBC 7.2, hemoglobin 16.2, platelet 191 with increased granulocytes, BMP with chloride 108, BUN/creatinine 24/1.34, troponin less than 0.015, glucose 77, chest x-ray with increased lung markings at left lung base, EKG with sinus bradycardia with no acute evidence of ischemia. In the ED patient ministered aspirin therapy. Past Medical History Past Medical History (Chronic Problems): Chronic Problems (Last Reviewed 10/24/18 @ 09:07 by Kolby Morales MD) Hypothyroidism (Chronic) CVA (cerebral vascular accident) (Chronic) History of pituitary tumor (Chronic) BPH (benign prostatic hyperplasia) (Chronic) Essential (primary) hypertension (Chronic) Atherosclerotic heart disease of [place] coronary artery without angina pectoris (Chronic) CABG x 2 -ALEGRE to LAD, SVG to PDA 08/22/13 Hyperlipidemia (Chronic) Medical History: Medical History (Last Reviewed 10/24/18 @ 09:07 by Kolby Morales MD) Essential (primary) hypertension (Chronic) I10 Atherosclerotic heart disease of [place] coronary artery without angina pectoris (Chronic) I25.10 CABG x 2 -ALEGRE to LAD, SVG to PDA 08/22/13 Hyperlipidemia (Chronic) E78.5 Hypothyroidism E03.9 Ischemic cerebrovascular accident (CVA) I63.9 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 Pulmonary embolism I26.99 H/O: pituitary tumor (Resolved) Z87.898 History of remote Benign tumor status post resection and radiation therapy Allergies atorvastatin calcium [From Lipitor] Allergy (Verified 05/12/19 10:39) LEG CRAMPS legs cramped shrimp Allergy (Verified 05/12/19 10:39) Hives rosuvastatin [From Crestor] Adverse Reaction (Verified 05/12/19 10:39) myalgia Home Medications: Ambulatory Orders Medication Instructions Recorded Levothyroxine [Synthroid] 88 mcg PO DAILY 08/19/13 Tamsulosin HCl [Flomax] 0.4 mg PO DAILY 08/19/13 Clopidogrel Bisulfate [Clopidogrel] 75 mg PO DAILY 06/12/17 Finasteride [Proscar] 5 mg PO DAILY 06/12/17 Prednisone 5 mg PO DAILY 06/12/17 Vitamin E 400 units PO DAILY 09/03/17 coenzyme Q10 10 mg capsule 10 mg PO QDAY cap 10/17/17 nitroglycerin 0.4 mg sublingual 0.4 mg SUBLINGUAL Q5-15M PRN #25 10/03/18 tablet tab omega 1-xuu-jbu-fish oil 1,000 mg 1 cap PO DAILY 10/24/18 (120 mg-180 mg) capsule testosterone cypionate 200 mg/mL 200 mg IM X1 84 Days ml 10/24/18 intramuscular oil Surgical History: Surgical History (Last Reviewed 10/24/18 @ 09:07 by Kolby Morales MD) H/O coronary artery bypass surgery (Resolved) Onset Date: 08/22/13 Z95.1 CABG x 2 -ALEGRE to LAD, SVG to PDA 08/22/13 H/O basal cell carcinoma excision Z98.890, Z85.828 H/O hernia repair (Resolved) Z98.890, Z87.19 H/O hernia repair Z98.890, Z87.19 History of pituitary tumor Z87.898 History of remote Benign tumor status post resection and radiation therapy History of surgical removal of pituitary gland Z98.890, E89.3 Surgical History: coronary bypass surgery, herniorrhaphy, tonsillectomy, - - Pituitary resection, inguinal hernia repairs, CABG x2, tonsillectomy. Psychiatric History: No pertinent psych hx Lives: Spouse/ Significant Other Smoking Status: Former smoker - He notes that he smoked minimally, quit 40 years prior and this was rare. Tobacco Use: Non-smoker Alcohol: None Drugs: None - *Family History Maternal Family History: Family History (Last Reviewed 10/24/18 @ 09:07 by Kolby Morales MD) Mother CAD (coronary artery disease) Diabetes Grandmother CAD (coronary artery disease) Diabetes Grandfather CAD (coronary artery disease) Father No problems noted. History Items: Diabetes, Heart Disease Paternal Family History: Family History (Last Reviewed 10/24/18 @ 09:07 by Kolby Morales MD) Mother CAD (coronary artery disease) Diabetes Grandmother CAD (coronary artery disease) Diabetes Grandfather CAD (coronary artery disease) Father No problems noted. History Items: Hypertension Review of Systems Constitutional: Reports: Malaise, Weakness, Fatigue. Denies: Chills, Fever, Weight Change HEENT: Denies: Head Aches, Sinus Congestion, Sinus Drainage Cardiovascular: Reports: Chest Pain, Light Headedness, Syncope. Denies: Chest Pressure, Chest Tightness, Orthopnea, Palpitations Respiratory: Denies: Cough, Shortness of Breath, Shortness of breath at rest, Shortness of breath upon exertion, Sputum production Gastrointestinal: Denies: Abdominal Pain, Nausea, Vomiting Genitourinary: Denies: Dysuria Musculoskeletal: Reports: Arm Pain, Joint Pain, Shoulder Pain. Denies: Joint Tenderness Skin: Denies: Rash, Wounds Neurological: Denies: Numbness, Tingling, Focal weakness Psychiatric: Denies: Anxiety, Depression, Homicidal Ideations, Suicidal Ideations Hematologic/ Lymphatic: Reports: Anemia, Easy Bruising, Easy Bleeding VTE Information - Inpt Only VTE Present on Admission: No VTE Mechan Device Prophylaxis: SCD's VTE Pharm Prophylaxis ordered?: Yes Patient Problems: Active and Suspected Problems (Last Reviewed 10/24/18 @ 09:07 by Kolby Morales MD) Chest pain (Acute) Near syncope (Acute) Subjective: Seated upright in the PCU bed, no acute distress, denies any recurrent chest discomfort. Objective: Physical Examination: General: awake, alert, oriented x 3 and cooperative, seated upright in the PCU bed, no acute distress, no recurrent chest discomfort. Skin: normal color, turgor, no icterus, cyanosis. HEENT: AT/NC, EOMI, PERRLA, MMM, no carotid bruits or JVD noted. Lungs: CTA bilaterally, moderate effort, moderate decrease BL bases, no rales, ronchi or wheezing. Heart: Bradycardic with regular rhythm; no gallop, rub audible. Abdomen: soft, obese, NTTP, ND, normal BS, no HSM. Extremities: no cyanosis, clubbing, mild bilateral ankle nonpitting edema. Neurological: patient awake, alert, oriented x 3; cognitive function intact; pupils equally reactive to light and accomodation; cranial nerves II-XII grossly normal, moving all 4 extremities however limitation to the right upper extremity given recent history of fall with shoulder pain, difficulty raising above 90 degrees with pending outpatient orthopedic surgery evaluation, strength moderately global decrease. Psychiatric: affect appears mildly fatigued otherwise normal, no acute evidence of depressive or anxiety feelings. - Physical Exam Vitals/I&O's: Vital Signs Temp Pulse Resp BP Pulse Ox 97.7 F L 46 L 16 95/54 L 96 05/12/19 10:40 05/12/19 11:43 05/12/19 11:43 05/12/19 10:47 05/12/19 11:43 Oxygen Delivery Method Room Air Weight: 198 lb 6.656 oz Body Mass Index (BMI) 31.1 Finger Stick Blood Glucose 102 Laboratory Results 05/12/19 10:52: WBC 7.2, RBC 4.85, Hgb 16.2, Hct 47.8, MCV 98.6 H, MCH 33.4 H, MCHC 33.9, RDW Std Deviation 52.6 H, RDW Coeff of Viviana 14.4, Plt Count 191, MPV 9.8, Immature Gran % (Auto) 2.600 H, Neut % (Auto) 52.6, Lymph % (Auto) 27.6, [place] % (Auto) 12.2 H, Eos % (Auto) 3.9, Baso % (Auto) 1.1 H, Absolute Neuts (auto) 3.8, Absolute Lymphs (auto) 1.99, Nucleated RBC % 0 05/12/19 10:52: Sodium 141, Potassium 3.6, Chloride 108 H, Carbon Dioxide 27.0, Anion Gap 6, BUN 24 H, Creatinine 1.34 H, Estim Creat Clear Calc 37.68, Est GFR (MDRD) Af Amer 65, Est GFR (MDRD) Non-Af 54 L, BUN/Creatinine Ratio 17.9, Glucose 77, Calcium 8.7, Troponin I < 0.015 Assessment/Plan All Active Problems (Last Reviewed 10/24/18 @ 09:07 by Kolby Morales MD) Chest pain (Acute) Near syncope (Acute) H/O coronary artery bypass surgery (Resolved 08/22/13) Abnormal stress test (Resolved) H/O hernia repair (Resolved) H/O: pituitary tumor (Resolved) 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 ED on 05/12/19 with history of onset of decided with radiation to the midsternal chest discomfort described as a dull aching, 5 out of 10 in severity with diaphoresis. 1. Chest Pain with near syncopal event suspected secondary to self nitroglycerin administration: EKG in ED sinus bradycardia cardia with no acute evidence of ischemia, CXR w/ questionable left lung base increased markings, initial trop x1. Will admit to PCU, place on a monitored bed to assure no acute myocardial infarction with serial cardiac enzymes and EKGs. If repeat EKG as well as cardiac enzymes remain unremarkable would plan to pursue a.m. cardiac stress testing also pending repeat chest x-ray following gentle hydration as could be early ASA, morphine. Be cautious will also obtain echocardiogram. Will cautiously use nitroglycerin given likely caused hypotensive syncopal event. 2. CAD: Status post CABG x 2 ALEGRE to LAD and SVG to PDA 2013, continue home aspirin, Plavix, from current list not on beta-hakeem therapy likely secondary to underlying chronic bradycardia, not on BRENDA inhibitor or ARB, will defer, not on statin with noted allergy. 3. Hypertension: Not on regimen, suspect likely transition to hypotension, will continue to monitor, hydrating, add regimen if appropriate. 4. Hyperlipidemia: Not on statin, allergy noted with myalgias, FLP in a.m. 5. History of pituitary tumor, s/p resection on chronic steroids: Status post section, on chronic steroids given caputo hypo-pituitarism, maintain on home prednisone level. 6. Hypothyroidism: Continue home synthroid regimen. 7. BPH: We will continue home Flomax and Proscar regimen. 8. Hx CVA: We will continue home aspirin, Plavix, noted statin allergy, hypertensive presentation and not on regimen which will be deferred given this finding. 9. DVT prophylaxis: SCDs, Lovenox. 10. CODE status: Patient notes that his is his healthcare power of ultrasound sonographer. He does not have a living will set up. Discussed CODE status at length including difference between FULL code, DNR-CCA and DNR-CC status. Patient and admit that they need to set up a well and discussed these items with her distributor operator. Patient will remain a full code and plans further continue discussions outpatient and with her distributor operator to set these items up. Advanced Care Planning Face to Face Time: 16 minutes. Code Visit OBSV E&M: 58092 Initial observation care L3 Procedures: 59920 Advncd Care Plan 30 Min
--- NOTE | 2019-05-12 12:37 | ECHOCS_ITS ---
Reason For Study: Syncope Procedure This was a 2D Doppler, Color Flow transthoracic echocardiogram. The study was technically difficult. Contrast injection was performed. Exam performed portable in patient room. Left Ventricle Normal LV size. Left ventricular systolic function is normal. The estimated ejection fraction is 65 %. No regional wall motion abnormalities noted. Right Ventricle Normal RV size. Normal systolic function. Atria Normal left atrium. Normal right atrium. Mitral Valve Normal mitral valve. Tricuspid Valve Normal tricuspid valve. Aortic Valve The aortic valve is not well visualized. Pulmonic Valve Normal pulmonic valve. Great Vessels Normal aortic root. Pericardium/Pleural No pericardial effusion. Medication Diluted definity 3ml given slow IV push to enhance endocardial definition. MMode/2D Measurements & Calculations LVIDd: 4.6 cm IVSd: 1.1 cm Ao root diam: 3.7 cm LVIDs: 2.9 cm LVPWd: 0.97 cm LA dimension: 3.6 cm FS: 37.6 % LAV(MOD-bp): 57.2 ml LA A4 area: 19.7 cm2 LAV(MOD-bp) Indexed: 28.4 ml/m2 LAV(MOD-sp2): 55.8 ml LAV(MOD-sp4): 61.9 ml Time Measurements MV dec time: 0.26 sec Doppler Measurements & Calculations MV E max yuval: 81.5 cm/sec Lat Peak E' Yuval: 8.5 cm/sec Med Peak E' Yuval: 5.6 cm/sec MV A max yuval: 64.1 cm/sec E/E' lat: 9.6 E/E' med: 14.5 MV E/A: 1.3 MV V2 max: 90.5 cm/sec MV P1/2t max yuval: 89.6 cm/sec Ao V2 max: 89.8 cm/sec MV max P.3 mmHg MV P1/2t: 73.0 msec Ao max P.2 mmHg MV V2 mean: 41.5 cm/sec MV dec slope: 359.4 cm/sec2 Ao V2 mean: 60.0 cm/sec MV mean P.83 mmHg Ao mean P.6 mmHg MV V2 VTI: 32.3 cm MVA(P1/2t): 3.0 cm2 Ao V2 VTI: 19.4 cm LV V1 max: 69.1 cm/sec PA V2 max: 59.7 cm/sec TR max yuval: 230.4 cm/sec LV V1 max P.9 mmHg TR max P.2 mmHg LV V1 mean P.2 mmHg LV V1 mean: 52.5 cm/sec LV V1 VTI: 17.5 cm Interpretation Summary Normal LV size. Left ventricular systolic function is normal. The estimated ejection fraction is 65 %. No regional wall motion abnormalities noted. Contrast injection was performed. Ordering Physician: Bessy Zavaal Referring Physician: Raina Rae Performed By: Marlon Montenegro RCS
--- NOTE | 2019-05-12 12:37 | EKG12_ITS ---
Test Reason : CP Blood Pressure : / mmHG Vent. Rate : 052 BPM Atrial Rate : 052 BPM P-R Int : 212 ms QRS Dur : 104 ms QT Int : 412 ms P-R-T Axes : 034 -53 057 degrees QTc Int : 383 ms Sinus bradycardia with sinus arrhythmia with 1st degree A-V block Left anterior fascicular block Poor R wave progression Abnormal ECG Confirmed by JUDSON PEREZ, SALIMA ([id number]), editor managing director EFRAIN FLORENTINO ([id number]) on 05/14/2019 12:54:49 PM Referred By: Bessy Zavala Confirmed By:SALIMA ROPER MD
[2019-05-12 12:51] LABS: Magnesium 2.4 mg/dL (1.6-2.6)
[2019-05-12] MEDS: 0.9% Normal Saline 1,000 ML 100 ML IV ×2 (13:07→22:09)
[2019-05-13] VITALS (9 sets, daily range): BP systolic 96–128; BP diastolic 53–70; PULSE 51–69; RESP 12–18; TEMP 36.4–36.9; O2SAT 92–97
--- NOTE | 2019-05-13 05:55 | EKG12_ITS ---
Test Reason : AM EKG Blood Pressure : / mmHG Vent. Rate : 055 BPM Atrial Rate : 055 BPM P-R Int : 216 ms QRS Dur : 108 ms QT Int : 442 ms P-R-T Axes : 076 -52 066 degrees QTc Int : 422 ms Sinus bradycardia with sinus arrhythmia with 1st degree A-V block Left anterior fascicular block Abnormal ECG When compared with ECG of 12-MAY-2019 13:22, MANUAL COMPARISON REQUIRED, DATA IS UNCONFIRMED Confirmed by NICOLE TOLEDO ([id number]), editorial assistant DEBORA LAMAR ([id number] on 05/18/2019 10:54:33 AM Referred By: Bessy Zavala Confirmed By:NICOLE TOLEDO
[2019-05-13 05:58] LABS: Absolute Lymphocyte Count 1.74 X10^3/uL (0.83-4.51); Absolute Neutrophil Count 3.5 X10^3/uL (2.0-7.7); Basophil# 0.08 X10^3/uL; Basophil% 1.2 % (0-1); Eosinophil# 0.29 X10^3/uL; Eosinophils% 4.4 % (0-5); Hematocrit 45.6 % (40-54); Hemoglobin 15.5 g/dL (13.0-16.5); Lymphocyte # 1.74 X10^3/ul (4.0); Lymphocyte % 26.4 % (19-41); Mean Corpuscular Hgb 33.3 pg (27.0-32.0); Mean Corpuscular Volume 98.1 fL (80-94); Mean Platelet Vol. 9.9 fl (6.2-12.0); Monocyte# 0.82 X10^3/uL; Monocyte% 12.4 % (0-10); NRBC Flagged by Analyzer 0 % (0-5); Neutrophil # 3.53 X10^3/uL (2.7-7.7); Neutrophil % 53.6 % (47-70); Platelet Count 176 K/mm3 (150-450); RBC Distribution Width CV 14.5 % (11.6-14.6); Red Blood Count 4.65 M/mm3 (4.6-6.2); White Blood Count 6.6 K/mm3 (4.4-11.0)
[2019-05-13] MEDS: Levothyroxine 88 MCG Tablet PO (06:06)
[2019-05-13 06:25] LABS: Anion Gap 6 (5-15); BUN 21 mg/dL (7-18); BUN/Creat Ratio 17.8 RATIO (10-20); Calcium,Total 7.7 mg/dL (8.5-10.1); Chloride 110 mmol/L (98-107); Cholesterol 248 mg/dL (200); Creatinine, Serum 1.18 mg/dL (0.70-1.30); EST Glomerular Filtration Rate 62 mL/min (>60); Est Glom Filt Rate - Afr Amer 75 mL/min (>60); Estimated Creatinine Clearance 42.79 ml/min; Glucose 79 mg/dL (74-106); High Density Lipoprotein 41 mg/dL; Potassium 3.9 mmol/L (3.5-5.1); Sodium Level 141 mmol/L (136-145); Triglycerides 142 mg/dL; Very Low Density Lipoprotein 28 mg/dL (5-40)
[2019-05-13] MEDS: 0.9% Normal Saline 1,000 ML 100 ML IV ×2 (07:00→19:51)
[2019-05-13] MEDS: Clopidogrel Bisulfate 75 MG Tablet PO (11:22)
[2019-05-13] MEDS: Finasteride 5 MG Tablet PO (11:22)
[2019-05-13] MEDS: Aspirin E.C. 81 MG Tablet PO (11:22)
[2019-05-13] MEDS: predniSONE 5 MG Tablet PO (11:22)
--- NOTE | 2019-05-13 12:03 | STRESSREP ---
Stress Test Report Date: 05-13-19 Procedure: Exercise tolerance test/imaging study Indications: Chest pain; CAD; CABG Consent: Per the patient Procedure: The patient exercised on a Ayush protocol for 5 minutes completing Stage I and 2 minutes of Stage II achieving a peak heart rate of 127 bpm (94 % predicted maximal heart rate) with a peak blood pressure 190/82 mmHg and a peak MET capacity of 7 METs. The baseline ECG demonstrated sinus bradycardia; poor R wave progression. The peak exercise ECG demonstrated no obvious ECG changes. There were no cardiac dysrhythmias pretest, during exercise, or recovery. The functional capacity was considered average. There was no complaint of chest discomfort during exercise or recovery. The examination was discontinued secondary to dyspnea. Impression: 1. Technically adequate (percent predicted maximal heart rate greater than 85%) exercise tolerance test 2. Peak exercise ECG with no obvious ECG changes 3. There were no cardiac dysrhythmias pretest, during exercise, or recovery 4. Nuclear images pending Myocardial perfusion imaging study: Technique: The patient was injected with 12.0 mCi of technetium 99m Cardiolite and subsequently rest SPECT Cardiolite nuclear imaging was obtained in the horizontal long, vertical long, and short axis views. The patient exercised on a Ayush protocol for 5 minutes completing Stage I and 2 minutes of Stage II achieving a peak heart rate of 127 bpm (94 % predicted maximal heart rate) with a peak blood pressure 190/82 mmHg and a peak MET capacity of 7 METs. The patient was injected with 35.0 mCi of technetium 99m Cardiolite and subsequently stress SPECT Cardiolite nuclear imaging was obtained in the horizontal long, vertical long, and short axis views. A gated Cardiolite study at peak stress was obtained. Interpretation: Rest and stress SPECT Cardiolite nuclear imaging status post realignment, normalization, and attenuation correction, demonstrates at rest the appearance of relative uniform tracer uptake and myocardial perfusion appearing within normal limits. Status post stress there is notation of diminished tracer uptake in portions of the distal anterior and apical areas. There is end systolic thickening and brightening. The gated Cardiolite study demonstrates myocardial thickening and inward wall motion. The reported LVEF is 65 %. Impression: 1. Rest and stress SPECT Cardiolite nuclear imaging demonstrate the appearance of diminished myocardial perfusion/tracer uptake following stress in portions of the distal anterior and apical areas appearing compatible with an area of stress-induced myocardial ischemia. 2. The gated Cardiolite study reports an LVEF of 65 %. This note was generated with [employer] software. It may contain incorrect words, spelling, and punctuation that were not noted in checking the note before signing.
[2019-05-13] MEDS: Tamsulosin HCl 0.4 MG Capsule PO (12:29)
--- NOTE | 2019-05-13 12:30 | PCM.PN.HOSP ---
Patient Problems: Active and Suspected Problems (Last Reviewed 10/24/18 @ 09:07 by Kolby Morales MD) Chest pain (Acute) Near syncope (Acute) Subjective: Patient with no acute events overnight per self and per nursing report. Patient remained chest pain-free since admission. He notes ongoing right shoulder discomfort but primarily with movements and is stable from prior. Patient with cardiac stress testing which is abnormal with discussions for planned cardiac consultation and likely cardiac catheterization evaluation in a.m. Patient denies fevers, chills, nausea, emesis, abdominal pain, recurrent or worsening chest pain or dyspnea. Objective: Physical Examination: General: awake, alert, oriented x 3 and cooperative, seated upright in the PCU bedside chair, no acute distress, no recurrent chest discomfort. Skin: normal color, turgor, no icterus, cyanosis. HEENT: AT/NC, EOMI, PERRLA, MMM. Lungs: CTA bilaterally, moderate effort, moderate decrease BL bases, no rales, ronchi or wheezing. Heart: Bradycardic with regular rhythm; no gallop, rub audible. Abdomen: soft, obese, NTTP, ND, normal BS. Extremities: no cyanosis, clubbing, mild bilateral ankle nonpitting edema. Neurological: patient awake, alert, oriented x 3; cognitive function intact; pupils equally reactive to light and accomodation; cranial nerves II-XII grossly normal, moving all 4 extremities however limitation to the right upper extremity given recent history of fall with shoulder pain, difficulty raising above 90 degrees with pending outpatient orthopedic surgery evaluation, strength moderately global decrease. Psychiatric: affect appears improved, normal, no acute evidence of depressive or anxiety feelings. Vitals/I&O's: Vital Signs Temp Pulse Resp BP Pulse Ox 98.4 F 61 18 128/70 H 94 05/13/19 11:14 05/13/19 11:14 05/13/19 11:14 05/13/19 11:14 05/13/19 11:14 Oxygen Delivery Method Room Air Weight: 196 lb 6.91 oz Body Mass Index (BMI) 30.7 Finger Stick Blood Glucose 102 Intake and Output for Last 24 Hours 05/11/19 05/12/19 05/13/19 23:59 23:59 23:59 Intake Total 1123.33 / 1723.33 1735 / 1735 Balance 1123.33 / 1723.33 1735 / 1735 Laboratory Results 05/12/19 10:52: Magnesium 2.4 05/12/19 14:15: Troponin I < 0.015 05/12/19 16:50: Troponin I < 0.015 05/13/19 05:38: WBC 6.6, RBC 4.65, Hgb 15.5, Hct 45.6, MCV 98.1 H, MCH 33.3 H, MCHC 34.0, RDW Std Deviation 52.0 H, RDW Coeff of Viviana 14.5, Plt Count 176, MPV 9.9, Immature Gran % (Auto) 2.000 H, Neut % (Auto) 53.6, Lymph % (Auto) 26.4, Randall % (Auto) 12.4 H, Eos % (Auto) 4.4, Baso % (Auto) 1.2 H, Absolute Neuts (auto) 3.5, Absolute Lymphs (auto) 1.74, Nucleated RBC % 0 05/13/19 05:38: Sodium 141, Potassium 3.9, Chloride 110 H, Carbon Dioxide 25.0, Anion Gap 6, BUN 21 H, Creatinine 1.18, Estim Creat Clear Calc 42.79, Est GFR (MDRD) Af Amer 75, Est GFR (MDRD) Non-Af 62, BUN/Creatinine Ratio 17.8, Glucose 79, Calcium 7.7 L, Triglycerides 142, Cholesterol 248 H, LDL Cholesterol 179 H, VLDL Cholesterol 28, HDL Cholesterol 41 Current Medications Acetaminophen (Tylenol) 650 mg PO Q6H PRN PRN PRN Reason: Non-cardiac pain (4-10/10) Hydrocodone Bitart/Acetaminophen ([place] 5mg-325mg) 1 - 2 tablet PO Q4H PRN PRN PRN Reason: Pain Score 4-10/10 Al Hydroxide/Mg Hydroxide (Mylanta Ii) 15 - 30 ml PO Q4H PRN PRN PRN Reason: INDIGESTION Albuterol Sulfate (Ventolin Aerosols) 2.5 mg INHALATION Q2H PRN PRN PRN Reason: dyspnea, wheezing Aspirin (Ecotrin) 81 mg PO DAILY@0800 [facility] Last Admin: 05/13/19 11:22 Dose: 81 mg Documented by: Clopidogrel Bisulfate (Plavix) 75 mg PO DAILY [facility] Last Admin: 05/13/19 11:22 Dose: 75 mg Documented by: Dextrose (D50w Syringe) 0 gm IV X1 PRN; Protocol PRN Reason: Hypoglycemia Enoxaparin Sodium (Lovenox) 40 mg SC DAILY [facility] Last Admin: 05/13/19 11:19 Dose: Not Given Documented by: Finasteride (Proscar) 5 mg PO DAILY [facility] Last Admin: 05/13/19 11:22 Dose: 5 mg Documented by: Glucagon () 1 mg IM .X1 PRN PRN Reason: Hypoglycemia Hydralazine HCl (Apresoline Iv) 10 mg IV Q4H PRN PRN PRN Reason: SBP > 160 Sodium Chloride () 1,000 mls @ 100 mls/hr IV .Q10H [facility] Last Infusion: 05/13/19 11:35 Dose: 100 mls/hr Documented by: Levothyroxine Sodium (Synthroid) 88 mcg PO DAILY@0600 [facility] Last Admin: 05/13/19 06:06 Dose: 88 mcg Documented by: Magnesium Hydroxide (Milk Of Magnesia) 30 ml PO DAILY PRN PRN Reason: Constipation Melatonin (Melatonin) 3 mg PO QHS PRN PRN PRN Reason: INSOMNIA Morphine Sulfate () 1 - 2 mg IV Q4H PRN PRN PRN Reason: Pain Score 1-10/10 Nitroglycerin (Nitrostat) 0.4 mg SUBLINGUAL Q5M PRN PRN Reason: CARDIAC/CHEST PAIN Ondansetron HCl (Zofran) 4 mg IV Q8H PRN PRN PRN Reason: NAUSEA/VOMITING Prednisone () 5 mg PO DAILY@0800 [facility] Last Admin: 05/13/19 11:22 Dose: 5 mg Documented by: Sodium Chloride () 10 - 40 ml IV UD PRN PRN Reason: SALINE FLUSH Tamsulosin HCl (Flomax) 0.4 mg PO DAILY@0830 [facility] Last Admin: 05/13/19 12:29 Dose: 0.4 mg Documented by: STROKE Vital Signs/Narrative: Vital Signs Temp Pulse Resp BP Pulse Ox 05/13/19 11:14 98.4 F 61 18 128/70 H 94 Medical Necessity - Tobacco Use Smoking Status: Former smoker - He notes that he smoked minimally, quit 40 years prior and this was rare. Tobacco Use: Non-smoker Assessment/Plan All Active Problems (Last Reviewed 10/24/18 @ 09:07 by Kolby Morales MD) Chest pain (Acute) Near syncope (Acute) H/O coronary artery bypass surgery (Resolved 08/22/13) Abnormal stress test (Resolved) H/O hernia repair (Resolved) H/O: pituitary tumor (Resolved) [facility] use of drug (Resolved) Panhypopituitarism (Resolved) Slurred speech (Resolved) Syncope and collapse (Resolved) Weakness of right upper extremity (Resolved) The patient is a 84 y/o M w/ PMHx: CAD s/p CABG x 2 ALEGRE to LAD and SVG to PDA 2013, HTN, HLD, Hypothyroidism, Hx CVA, 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 ED on 05/12/19 with history of onset of decided with radiation to the midsternal chest discomfort described as a dull aching, 5 out of 10 in severity with diaphoresis. 1. Chest Pain with near syncopal event suspected secondary to self nitroglycerin administration: EKG in ED sinus bradycardia cardia with no acute evidence of ischemia, CXR w/ questionable left lung base increased markings, initial trop x1. Admitted to the PCU, placed on a monitored bed to assure no acute myocardial infarction with serial cardiac enzymes and EKGs which remain similar. Echocardiogram obtained with normal LV size, normal LV systolic function, EF 65% with no regional wall motion abnormalities. 05/13/19 cardiac stress testing with nuclear images demonstrating the appearance of diminished myocardial perfusion/tracer uptake following stress and portions of the distal anterior and apical areas compatible with area of stress-induced myocardial ischemia, EF 65%. ASA, morphine. Will cautiously use nitroglycerin given likely caused hypotensive syncopal event. Cardiology consulted, pending given abnormal cardiac stress testing, plan n.p.o. status after midnight, gentle hydration at midnight. 2. CAD: Status post CABG x 2 ALEGRE to LAD and SVG to PDA 2013, continue home aspirin, Plavix, from current list not on beta-hakeem therapy likely secondary to underlying chronic bradycardia, not on BRENDA inhibitor or ARB, will defer, not on statin with noted allergy. 3. Hypertension: Not on regimen, suspect likely hypotension, BP remains low normal off regimen. 4. Hyperlipidemia: Not on statin, allergy noted with myalgias, FLP with total cholesterol 248, triglycerides 142, LDL 179, VLDL 28, HDL 41. 5. History of pituitary tumor, s/p resection on chronic steroids: Status post section, on chronic steroids given caputo hypo-pituitarism, maintain on home prednisone level. 6. Hypothyroidism: Continue home synthroid regimen. 7. BPH: We will continue home Flomax and Proscar regimen. 8. Hx CVA: We will continue home aspirin, Plavix, noted statin allergy, hypotensive presentation and not on regimen which will be deferred given this finding. 9. DVT prophylaxis: SCDs, Lovenox. 10. CODE status: Full code. Code Visit OBSV E&M: 55081 Subsequent observation care L3
--- NOTE | 2019-05-13 12:47 | CASEMGMT ---
Intro role of CM to patient, his and other family in room. FLANA[facility] form explained re: Observation status for treatment of chest pain, syncope. Explained hospitalization will be paid per? insurance policy for Outpatient billing?and condition will continue to be evaluated for Inpt necessity. Also let pt know that [facility] sends paper in the billing packet with their phone number if questions arise. Discussed Pharmacy section of FLANAGAN form and self administered medication guideline.? Pt verbalizes understanding and does not have further questions. Form signed and placed in chart, copy to pt. CHUCKIE PATEL BSN CM
--- NOTE | 2019-05-13 13:59 | CASEMGMT ---
According to the [facility] website, the following are in-network tertiary facilities: [facility], [place], [facility], [place], [facility], [facility], [place], [facility], and . Christo PATEL CM
--- NOTE | 2019-05-13 17:31 | CON.PCM_ITS ---
Problem List (1) Chest pain Status: Acute Qualifiers: Chest pain type: unspecified Qualified Code(s): R07.9 - Chest pain, unspecified (2) Near syncope Status: Acute (3) CAD (coronary artery disease) Status: Chronic Qualifiers: Coronary Disease-Associated Artery/Lesion type: [place] artery [place] vs. transplanted heart: [place] heart (4) H/O coronary artery bypass surgery Status: Chronic Comment: CABG x 2 -ALEGRE to LAD, SVG to PDA 08/22/13 (5) Hyperlipidemia Status: Chronic Qualifiers: Hyperlipidemia type: pure hypercholesterolemia Qualified Code(s): E78.00 - Pure hypercholesterolemia, unspecified; E78.0 - Pure hypercholesterolemia (6) Essential (primary) hypertension Status: Chronic (7) CVA (cerebral vascular accident) Status: Chronic Qualifiers: CVA mechanism: unspecified Qualified Code(s): I63.9 - Cerebral infarction, unspecified (8) Abnormal stress test Status: Acute Reason for Consult Date of Consultation: 05/13/19 History of Present Illness: The patient is a 84 year old male with a history of underlying hyperlipidemia, hypertension, CAD, status post RCA attempted PCI with concern of RCA related complication requiring urgent/emergent CABG with a ALEGRE to the LAD and an SVG to the RCA, superimposed upon a history of CVA, who is referred for concerns of chest discomfort, near-syncope, and subsequently an abnormal stress nuclear imaging study. The patient stated that at home he developed right-sided chest discomfort which migrated to his central chest area. He was uncomfortable with this. He attempted aspirin therapy with no response. He then attempted nitroglycerin sublingual therapy while lying on his bed. He states he subsequently went out as he does not remember what occurred until the EMS arrived. He was brought to the hospital for further evaluation. He notes since being at the hospital he has had no recurrent chest discomfort. His cardiac enzymes have been negative. His ECG demonstrated sinus bradycardia with a first-degree AV block with left axis deviation and a possible left anterior fascicular block and poor R wave progression. He was evaluated with a transthoracic echocardiogram. Based upon the report the left ventricle was thought to be normal with an LVEF of 65%. He subsequently underwent evaluation with an exercise tolerance test/imaging study. The results are as noted below, however, the myocardial perfusion scan was thought to be abnormal following stress and being compatible with stress-induced myocardial ischemia involving po rtions of the distal anterior segments and apical segments. He was subsequently referred for cardiovascular evaluation. He states that the present time he is not having ongoing chest discomfort. He has had no acute shortness of breath or dyspnea. There has been no near syncope or syncope. He states he has been active at home, working outside on his lawn, using a chainsaw, and having to stop and rest occasionally to catch his breath and regain his energy level. [] Past Medical History Allergies/Adverse Reactions: Allergies atorvastatin calcium [From Lipitor] Allergy (Verified 05/12/19 10:39) LEG CRAMPS legs cramped shrimp Allergy (Verified 05/12/19 10:39) Hives rosuvastatin [From Crestor] Adverse Reaction (Verified 05/12/19 10:39) myalgia Home Medications: Ambulatory Orders Medication Instructions Recorded Levothyroxine [Synthroid] 88 mcg PO DAILY 08/19/13 Tamsulosin HCl [Flomax] 0.4 mg PO DAILY 08/19/13 Clopidogrel Bisulfate [Clopidogrel] 75 mg PO DAILY 06/12/17 Finasteride [Proscar] 5 mg PO DAILY 06/12/17 Prednisone 5 mg PO DAILY 06/12/17 Vitamin E 400 units PO DAILY 09/03/17 coenzyme Q10 10 mg capsule 10 mg PO QDAY cap 10/17/17 nitroglycerin 0.4 mg sublingual 0.4 mg SUBLINGUAL Q5-15M PRN #25 10/03/18 tablet tab omega 4-tje-hic-fish oil 1,000 mg 1 cap PO DAILY 10/24/18 (120 mg-180 mg) capsule testosterone cypionate 200 mg/mL 200 mg IM X1 84 Days ml 10/24/18 intramuscular oil Past Medical History (Chronic Problems): Chronic Problems (Last Reviewed 10/24/18 @ 09:07 by Kolby Morales MD) Hypothyroidism (Chronic) CVA (cerebral vascular accident) (Chronic) History of pituitary tumor (Chronic) BPH (benign prostatic hyperplasia) (Chronic) CAD (coronary artery disease) (Chronic) Essential (primary) hypertension (Chronic) H/O coronary artery bypass surgery (Chronic 08/22/13) CABG x 2 -ALEGRE to LAD, SVG to PDA 08/22/13 Atherosclerotic heart disease of [place] coronary artery without angina pectoris (Chronic) CABG x 2 -ALEGRE to LAD, SVG to PDA 08/22/13 Hyperlipidemia (Chronic) Surgical History: coronary bypass surgery, herniorrhaphy, tonsillectomy, - - Pituitary resection, inguinal hernia repairs, CABG x2, tonsillectomy. Psychiatric History: No pertinent psych hx - *Family History Maternal Family History: Family History (Last Reviewed 10/24/18 @ 09:07 by Kolby Morales MD) Mother CAD (coronary artery disease) Diabetes Grandmother CAD (coronary artery disease) Diabetes Grandfather CAD (coronary artery disease) Father No problems noted. History Items: No pertinent history Paternal Family History: Family History (Last Reviewed 10/24/18 @ 09:07 by Kolby Morales MD) Mother CAD (coronary artery disease) Diabetes Grandmother CAD (coronary artery disease) Diabetes Grandfather CAD (coronary artery disease) Father No problems noted. History Items: Hypertension Lives: Spouse/ Significant Other Smoking Status: Former smoker - He notes that he smoked minimally, quit 40 years prior and this was rare. Tobacco Use: Non-smoker Alcohol: None Drugs: None Review of Systems - Review of Systems General: Denies: Fever, Night Sweats, Fatigue Cardiovascular: Reports: Chest Discomfort, Chest Discomfort at Rest, Near Syncope. Denies: Shortness of Breath, Orthopnea, PND, Peripheral Edema, Palpitations, Lightheadedness, Dizziness, Syncope Respiratory: Denies: Cough, Sputum Production, Hemoptysis Gastrointestinal: Denies: Hematemesis, Hematochezia, Melena Genitourinary: Denies: Dysuria, Hematuria Skin: Denies: Rash Subjectve: This is a pleasant 84-year-old white male who appears to be resting reasonably comfortably at the moment in no acute distress. Objective: Vital Signs Temp Pulse Resp BP Pulse Ox 97.5 F L 65 18 128/61 H 97 05/13/19 16:20 05/13/19 16:20 05/13/19 16:20 05/13/19 16:20 05/13/19 16:20 Oxygen Delivery Method Room Air Weight: 196 lb 6.91 oz Body Mass Index (BMI) 30.7 Finger Stick Blood Glucose 102 Intake and Output for Last 24 Hours 05/11/19 05/12/19 05/13/19 23:59 23:59 23:59 Intake Total 1123.33 / 1723.33 2034 Balance 1123.33 / 1723.33 2034 General: Awake, Alert, Oriented x 3, Cooperative, No Acute Distress HEENT: Atraumatic, Normocephalic, PERRL, EOMI, Sclera Non Icteric Oral: Moist Mucosa Neck: Supple, Good ROM, No JVD Lungs: Clear to auscultation Cardiovascular: Regular Rhythm, Normal S1, Normal S2 Vascular: No Carotid Bruits Abdomen: Bowel Sounds Present, Soft, Non Tender Extremities: No edema Neurological: No Focal Motor or Sensory Deficit Psych/Mental Status: Appropriate 05/12/19 16:50: Troponin I < 0.015 05/13/19 05:38: WBC 6.6, RBC 4.65, Hgb 15.5, Hct 45.6, MCV 98.1 H, MCH 33.3 H, MCHC 34.0, Plt Count 176, MPV 9.9, Immature Gran % (Auto) 2.000 H, Neut % (Auto) 53.6, Lymph % (Auto) 26.4, [place] % (Auto) 12.4 H, Eos % (Auto) 4.4, Baso % (Auto) 1.2 H, Absolute Neuts (auto) 3.5, Nucleated RBC % 0 05/13/19 05:38: Sodium 141, Potassium 3.9, Chloride 110 H, Carbon Dioxide 25.0, Anion Gap 6, BUN 21 H, Creatinine 1.18, Est GFR (MDRD) Af Amer 75, Est GFR (MDRD) Non-Af 62, BUN/Creatinine Ratio 17.8, Glucose 79, Calcium 7.7 L, Triglycerides 142, Cholesterol 248 H, LDL Cholesterol 179 H, VLDL Cholesterol 28, HDL Cholesterol 41 Rhythm: Sinus rhythm EKG: As noted above ECHO: As noted above Stress Test: Stress Test Report Date: 05-13-19 Procedure: Exercise tolerance test/imaging study Indications: Chest pain; CAD; CABG Consent: Per the patient Procedure: The patient exercised on a Ayush protocol for 5 minutes completing Stage I and 2 minutes of Stage II achieving a peak heart rate of 127 bpm (94 % predicted maximal heart rate) with a peak blood pressure 190/82 mmHg and a peak MET capacity of 7 METs. The baseline ECG demonstrated sinus bradycardia; poor R wave progression. The peak exercise ECG demonstrated no obvious ECG changes. There were no cardiac dysrhythmias pretest, during exercise, or recovery. The functional capacity was considered average. There was no complaint of chest discomfort during exercise or recovery. The examination was discontinued secondary to dyspnea. Impression: 1. Technically adequate (percent predicted maximal heart rate greater than 85%) exercise tolerance test 2. Peak exercise ECG with no obvious ECG changes 3. There were no cardiac dysrhythmias pretest, during exercise, or recovery 4. Nuclear images pending Myocardial perfusion imaging study: Technique: The patient was injected with 12.0 mCi of technetium 99m Cardiolite and subsequently rest SPECT Cardiolite nuclear imaging was obtained in the horizontal long, vertical long, and short axis views. The patient exercised on a Ayush protocol for 5 minutes completing Stage I and 2 minutes of Stage II achieving a peak heart rate of 127 bpm (94 % predicted maximal heart rate) with a peak blood pressure 190/82 mmHg and a peak MET capacity of 7 METs. The patient was injected with 35.0 mCi of technetium 99m Cardiolite and subsequently stress SPECT Cardiolite nuclear imaging was obtained in the horizontal long, vertical long, and short axis views. A gated Cardiolite study at peak stress was obtained. Interpretation: Rest and stress SPECT Cardiolite nuclear imaging status post realignment, normalization, and attenuation correction, demonstrates at rest the appearance of relative uniform tracer uptake and myocardial perfusion appearing within normal limits. Status post stress there is notation of diminished tracer uptake in portions of the distal anterior and apical areas. There is end systolic thickening and brightening. The gated Cardiolite study demonstrates myocardial thickening and inward wall motion. The reported LVEF is 65 %. Impression: 1. Rest and stress SPECT Cardiolite nuclear imaging demonstrate the appearance of diminished myocardial perfusion/tracer uptake following stress in portions of the distal anterior and apical areas appearing compatible with an area of stress-induced myocardial ischemia. 2. The gated Cardiolite study reports an LVEF of 65 %. Cardiac Cath: 08-20-13 PROCEDURES: 1. Left heart catheterization. 2. Left ventriculography. 3. Selective coronary angiography. INDICATIONS: The patient is a 78-year-old man who presented to the Emergency Room with the throat discomfort. The present cardiac catheterization is being taken to assess his anatomy and to guide therapy. DESCRIPTION OF PROCEDURE: After informed consent was obtained, 1% Xylocaine was used for local anesthetic agent to anesthetize the right femoral area. A 5-Tu[place] right femoral arterial sheath was placed without difficulty and side port flushed. A 5-[place] JL4 catheter was advanced to ascending aorta, flushed and pressures recorded. Left coronary ostium was identified and engaged. Left coronary angiography performed in multiple views. Following this, the catheter was removed and a 5-[place] JR4 catheter was inserted. The right coronary ostium was identified and engaged. Right coronary angiography performed in multiple views. Following this, the catheter was removed and a pigtail catheter was inserted. Left ventriculogram was performed with 36 mL of contrast at 12 mL per second. Following this, all catheters were removed, sheath was removed, digital pressure applied and hemostasis achieved. HEMODYNAMICS: The baseline heart rate was noted to be 54 beats per minute in sinus rhythm. Aortic pressure is 143/64, left ventricle pressure was 150/14. Post-angiogram left ventricular pressure is 106/11, aortic pressures is 103/48. CORONARY ARTERIOGRAPHY: 1. Left main: The left main coronary artery was a long vessel. It appeared to be angiographically free of significant disease. It bifurcated into left anterior descending artery and a circumflex artery. No high-grade stenosis was noted in this vesse l. 2. Left anterior descending artery: Left anterior descending artery is a medium-sized vessel. It gave off a first diagonal branch, which appeared to be angiographically free of significant disease. A large septal machine setter was noted with a side branch with no significant stenosis. The left anterior descending artery then continued and there was an area of smooth stenosis of approximately 50%. The left anterior descending artery continued towards the apex of the left ventricle. No significant stenosis was noted in this vessel. 3. Left circumflex artery: The left circumflex artery was a nondominant vessel. It gave off a first obtuse marginal branch, which bifurcated with no significant stenosis. The circumflex artery continued and gave off 3 small obtuse marginal branches. No high-grade stenosis was noted in this vessel. 4. Right coronary artery: The right coronary artery was a dominant small to medium-sized vessel. There was a sinoatrial branch and a conus branch were noted. After this, there was an area of 99% noted. The right coronary artery continued with 2 acute marginal branches and posterior descending artery. The posterolateral vessel was also noted with no significant stenosis. LEFT VENTRICULOGRAM: The left ventriculogram was a normal sized demonstrated preserved left ventricular systolic function. There was a small mid focal area in the inferior wall of mild hypokinesis at present. CONCLUSION: 1. Angiographically normal left main coronary artery. 2. Left anterior descending artery with smooth mid segment mild to moderate stenosis. 3. Left circumflex artery with no high-grade stenosis. 4. Dominant right coronary artery with proximal 99% stenosis. 5. Preserved ejection fraction. RECOMMENDATIONS: Based on the above angiographic findings, I would recommend angioplasty and stenting of the right coronary artery. Arrangements will be made to transfer the patient to a tertiary care facility for the above. CT Surgery: 08-21-13: [place], [place] ALEGRE to the LAD; SVG to the RCA CXR: Per radiology: Post open heart surgery changes appreciated; please see official report Assessment/Plan 1. Chest pain The patient experienced chest discomfort. The concern has been that this could be related to the patient's underlying history of CAD and myocardial ischemia. The patient is undergone evaluation with cardiac enzymes which have been negative for evidence of an acute coronary syndrome. The patient's electrocardiogram, echocardiogram, and stress nuclear imaging study are as noted above. At the present time the patient is continuing to be monitored. He is continuing cardiovascular medical therapy as tolerated. He has been recommended for further evaluation with diagnostic cardiac catheterization. The procedure and risks have been discussed with the patient. They are going to review this with the patient's primary medical records analyst, Dr. Morales, prior to proceeding with such a procedure. In the meantime the patient will continue medical management. He will also be monitored for any obvious noncardiovascular related findings that may be contributing to his symptoms that requires further noncardiac evaluation and care. 2. Near syncope The patient, status post taking nitroglycerin sublingual, states that he may have lost consciousness. He does not recall events until the EMS was present. There is concern this may be related to nitroglycerin-induced hypotension. However based upon the patient's cardiovascular disease history he has undergone additional evaluation as noted above. At the present time he will continue to be monitored for any obvious issues explaining his event including changes in his cardiac rate or rhythm. He will continue his noninvasive cardiovascular evaluation. He will consider his invasive options as noted above. 3. CAD status post RCA PCI attempt and status post subsequent urgent/emergent CABG The patient will continue his cardiovascular risk factor evaluation and medical therapy as deemed appropriate and tolerated. In the meantime he will continue his monitoring. He will discuss with his family and his primary medical records analyst is once and wishes with respect to proceeding with further evaluation with diagnostic cardiac catheterization. 4. Hyperlipidemia The patient states he has been intolerant to statin therapy. He will need medical therapy as tolerated. 5. Hypertension The patient will need to continue monitoring his blood pressure with adjustment of medicines as needed. 6. CVA The patient states that following his open heart surgery procedure he has had recurrent CVA events. He states he was placed on medical management including antiplatelet therapy with clopidogrel/Plavix. He remains on this at this time. 7. Abnormal stress test The patient does have an abnormal stress nuclear imaging study as previously noted. Ideally the patient would continue medical management and undergo further evaluation with diagnostic cardiac catheterization. This is been discussed with him. He is considering his options. He will discuss this with his primary medical records analyst, Dr. Morales, prior to proceeding with such a procedure. The patient's case has been discussed and reviewed with the patient, his spouse, his daughter, and other family members present. This note was generated using a voice recognition system and there may be incorrect words, spelling or punctuation that were not noted when reviewing the office note prior to saving.
[2019-05-13] MEDS: Isosorbide Mononitrate 30 MG Tablet PO (18:13)
[2019-05-14] VITALS (9 sets, daily range): BP systolic 96–109; BP diastolic 52–59; PULSE 41–57; RESP 13–16; TEMP 36.4–36.5; O2SAT 92–95
[2019-05-14 05:21] LABS: Absolute Lymphocyte Count 1.57 X10^3/uL (0.83-4.51); Absolute Neutrophil Count 3.6 X10^3/uL (2.0-7.7); Basophil# 0.07 X10^3/uL; Basophil% 1.1 % (0-1); Eosinophils% 4.6 % (0-5); Hematocrit 42.5 % (40-54); Hemoglobin 14.6 g/dL (13.0-16.5); Lymphocyte # 1.57 X10^3/ul (4.0); Lymphocyte % 24.2 % (19-41); Mean Corp Hgb Conc 34.4 g/dL (32-36); Mean Corpuscular Hgb 33.4 pg (27.0-32.0); Mean Corpuscular Volume 97.3 fL (80-94); Mean Platelet Vol. 9.8 fl (6.2-12.0); Monocyte# 0.84 X10^3/uL; Monocyte% 12.9 % (0-10); NRBC Flagged by Analyzer 0 % (0-5); Neutrophil # 3.59 X10^3/uL (2.7-7.7); Neutrophil % 55.2 % (47-70); Platelet Count 177 K/mm3 (150-450); RBC Distribution Width CV 14.5 % (11.6-14.6); RBC Distribution Width SD 52.4 fl (35.1-43.9); Red Blood Count 4.37 M/mm3 (4.6-6.2); White Blood Count 6.5 K/mm3 (4.4-11.0)
[2019-05-14 05:27] LABS: International Normalized Ratio 1.2; Prothrombin Time (Protime)PT. 14.6 SECONDS (11.7-14.9)
[2019-05-14 05:28] LABS: Partial Thromboplast Time 35.2 Seconds (24.1-36.2)
[2019-05-14 05:52] LABS: Anion Gap 6 (5-15); BUN 20 mg/dL (7-18); BUN/Creat Ratio 17.7 RATIO (10-20); Calcium,Total 7.7 mg/dL (8.5-10.1); Chloride 112 mmol/L (98-107); Creatinine, Serum 1.13 mg/dL (0.70-1.30); EST Glomerular Filtration Rate 66 mL/min (>60); Est Glom Filt Rate - Afr Amer 79 mL/min (>60); Estimated Creatinine Clearance 44.68 ml/min; Glucose 78 mg/dL (74-106); Potassium 4.1 mmol/L (3.5-5.1); Sodium Level 141 mmol/L (136-145)
[2019-05-14] MEDS: Levothyroxine 88 MCG Tablet PO (05:59)
[2019-05-14] MEDS: 0.9% Normal Saline 1,000 ML 100 ML IV (05:59)
--- NOTE | 2019-05-14 07:10 | PN.CARD_ITS ---
Subjectve: Patient seen and evaluated. Appears to doing well this morning. No cardiac complaints. Objective: Vital Signs Temp Pulse Resp BP Pulse Ox 97.5 F L 44 L 13 109/58 L 92 05/14/19 02:29 05/14/19 03:04 05/14/19 02:29 05/14/19 02:29 05/14/19 02:29 Oxygen Delivery Method Room Air Weight: 196 lb 6.91 oz Body Mass Index (BMI) 30.7 Finger Stick Blood Glucose 102 Intake and Output for Last 24 Hours 05/12/19 05/13/19 05/14/19 23:59 23:59 23:59 Intake Total 1123.33 / 1723.33 3685 / 3685 1000 / 1000 Balance 1123.33 / 1723.33 3685 / 3685 1000 / 1000 General: Awake, Alert, Oriented x 3 HEENT: PERRL, EOMI, Sclera Non Icteric Neck: Supple, Good ROM, No Lymph Node Enlargement Lungs: Clear to auscultation Cardiovascular: Regular Rhythm, Normal S1, Normal S2, No Murmurs, No Rubs, No Gallops Vascular: No Carotid Bruits, Normal Femoral Pulses, Normal Radial Pulses, Normal Dorsalis Pedal Pulse, Normal Posterior Tibial Pulses Abdomen: Bowel Sounds Present, Soft, Non Tender, No HSM, No Organomegaly Extremities: No Cyanosis, No Clubbing, No edema Musculoskeletal: No Erythema Skin: No Rashes Lymphatic: No Lymph Node Enlargement Neurological: No Focal Motor or Sensory Deficit Psych/Mental Status: Appropriate 05/14/19 05:05: WBC 6.5, RBC 4.37 L, Hgb 14.6, Hct 42.5, MCV 97.3 H, MCH 33.4 H, MCHC 34.4, Plt Count 177, MPV 9.8, Immature Gran % (Auto) 2.000 H, Neut % (Auto) 55.2, Lymph % (Auto) 24.2, [place] % (Auto) 12.9 H, Eos % (Auto) 4.6, Baso % (Auto) 1.1 H, Absolute Neuts (auto) 3.6, Nucleated RBC % 0 05/14/19 05:05: PT 14.6, INR 1.2, APTT 35.2 05/14/19 05:05: Sodium 141, Potassium 4.1, Chloride 112 H, Carbon Dioxide 23.0, Anion Gap 6, BUN 20 H, Creatinine 1.13, Est GFR (MDRD) Af Amer 79, Est GFR (MDRD) Non-Af 66, BUN/Creatinine Ratio 17.7, Glucose 78, Calcium 7.7 L Rhythm: EKG: ECHO: Stress Test: Cardiac Cath: PCI: CT Surgery: Holter monitor: EPS: PPM: CXR: Chest CT Scan: Medical Necessity - Tobacco Use Smoking Status: Former smoker - He notes that he smoked minimally, quit 40 years prior and this was rare. Tobacco Use: Non-smoker Assessment/Plan 1.Chest discomfort * The patient did experience chest discomfort which was somewhat atypical. He underwent stress testing where he exercised to 7 metabolic equivalents. The nuclear images reported a distal anterior and apical ischemic zone. He did not develop any chest pain during his exertion. * After much discussion with the patient today I am hesitant to proceed with a cardiac catheterization at the present time. I think that he is at low risk for a cardiovascular event and we should be able to continue with medical therapy and follow him up in the office. If he develops further chest discomfort then we may need to proceed with a cardiac catheterization. I had an extensive discussion with the patient and the family including phone calls and all in agreement. 2. Near syncope The patient, status post taking nitroglycerin sublingual, states that he may have lost consciousness. He does not recall events until the EMS was present. There is concern this may be related to nitroglycerin-induced hypotension. However based upon the patient's cardiovascular disease history he has undergone additional evaluation as noted above.At the present time he will continue to be monitored for any obvious issues explaining his event including changes in his cardiac rate or rhythm. He will continue his noninvasive cardiovascular evaluation. He will consider his invasive options as noted above. 3. CAD status post RCA PCI attempt and status post subsequent urgent/emergent CABG The patient will continue his cardiovascular risk factor evaluation and medical therapy as deemed appropriate and tolerated. 4. Hyperlipidemia The patient states he has been intolerant to statin therapy. He will need medical therapy as tolerated. 5. Hypertension The patient will need to continue monitoring his blood pressure with adjustment of medicines as needed. 6. CVA The patient states that following his open heart surgery procedure he has had recurrent CVA events. He states he was placed on medical management including antiplatelet therapy with clopidogrel/Plavix. He remains on this at this time. Thank you for allowing me to participate in the care of your patient. Please don't hesitate to call if any issues arise
[2019-05-14] MEDS: Aspirin E.C. 81 MG Tablet PO (08:49)
[2019-05-14] MEDS: Tamsulosin HCl 0.4 MG Capsule PO (08:49)
[2019-05-14] MEDS: predniSONE 5 MG Tablet PO (08:49)
[2019-05-14] MEDS: Finasteride 5 MG Tablet PO (08:50)
[2019-05-14] MEDS: Clopidogrel Bisulfate 75 MG Tablet PO (08:50)
--- NOTE | 2019-05-14 11:16 | DCINST_ITS ---
- Discharge Diagnoses Current Active Problems: Current Active and Chronic Problems (Last Reviewed 10/24/18 @ 09:07 by Kolby Morales MD) 1. Chest Pain with near syncopal event suspected secondary to self nitroglycerin administration with abnormal stress test 2. CAD status post CABG x 2 ALEGRE to LAD and SVG to PDA 2013 3. Hypertension 4. Hyperlipidemia 5. 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 Hypothyroidism 7. BPH 8. Hx CVA You will use the following diet at home:: Cardiac Your food should be the consistency of: Regular Your liquids should be the consistency of: Regular/Thin Discharge Activity: - - Avoid aggressive activity until evaluation per Orthopedic surgery, avoid aggressive weight bearing until evaluation. Weight Bearing Status: Weight bearing as tolerated Call your doctor if you observe: Fever of 101 or Higher, Inability to urinate, Inability to have a bowel movement, Shortness of breath, Dizziness, Fainting spells, Chest pain, Uncontrolled pain Instructions: What Is Angina?, Isosorbide Mononitrate Oral tablet, extended- release Additional Instructions: Please continue follow-up as discussed with Dr. Morales in 2 weeks. Please monitor your blood pressure as discussed and bring these readings to your follow-up visit. Follow up earlier or call Dr. Morales office if any recurrent chest pain or concerns. Allergies/Adverse Reactions: Allergies atorvastatin calcium [From Lipitor] Allergy (Verified 05/12/19 10:39) LEG CRAMPS legs cramped shrimp Allergy (Verified 05/12/19 10:39) Hives rosuvastatin [From Crestor] Adverse Reaction (Verified 05/12/19 10:39) myalgia Medications to take at Discharge Levothyroxine [Synthroid] 88 mcg PO DAILY 08/19/13 Tamsulosin HCl [Flomax] 0.4 mg PO DAILY 08/19/13 Clopidogrel Bisulfate [Clopidogrel] 75 mg PO DAILY 06/12/17 Finasteride [Proscar] 5 mg PO DAILY 06/12/17 Prednisone 5 mg PO DAILY 06/12/17 Vitamin E 400 units PO DAILY 09/03/17 coenzyme Q10 10 mg capsule 10 mg PO QDAY cap 10/17/17 nitroglycerin 0.4 mg sublingual tablet 0.4 mg SUBLINGUAL Q5-15M PRN #25 tab 10/03/18 omega 1-nkd-ptl-fish oil 1,000 mg (120 mg-180 mg) capsule 1 cap PO DAILY 10/24/18 testosterone cypionate 200 mg/mL intramuscular oil 200 mg IM X1 84 Days ml 10/24/18 Aspirin E.C. [Ecotrin] 81 mg PO DAILY@0800 tablet 05/14/19 Isosorbide Mononitrate [Imdur] 30 mg PO DAILY #30 tab 05/14/19 The following prescriptions were given: Isosorbide Mononitrate [Imdur] 30 mg PO DAILY #30 tab Transmission Status: Pending to [facility] #30 Primary Care Physician: Raina Rae MD [Primary Care Provider] - Please follow up with your Primary Care Physician in: Follow-up within 3 to 5 days to review admission. Test Results: Test results from this visit will be discussed in further detail at your follow- up appointment, if applicable. Please Follow Up With: Kolby Morales MD When: Follow-up in 2 weeks for reevaluation. Please Follow Up With: Orthopedic Surgeon When: Please keep your arranged visit with orthopedic surgery for R shoulder. Proposed Discharge Date: 05/14/19
--- NOTE | 2019-05-14 11:25 | PCM.DC.SUM ---
Discharge Date and Diagnosis - Problem List Patient Problems: Active and Suspected Problems (Last Reviewed 10/24/18 @ 09:07 by Kolby Morales MD) Chest pain (Acute) Near syncope (Acute) Abnormal stress test (Acute) Date of Admission: 05/12/19 Date of Discharge: 05/14/19 - Primary Discharge Diagnosis Active and Suspected Problems (Last Reviewed 10/24/18 @ 09:07 by Kolby Morales MD) 1. Chest Pain with near syncopal event suspected secondary to self nitroglycerin administration with abnormal stress test 2. CAD status post CABG x 2 ALEGRE to LAD and SVG to PDA 2013 3. Hypertension 4. Hyperlipidemia 5. 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 Hypothyroidism 7. BPH 8. Hx CVA - Secondary Discharge Diagnosis Chronic Problems (Last Reviewed 10/24/18 @ 09:07 by Kolby Morales MD) Hypothyroidism (Chronic) CVA (cerebral vascular accident) (Chronic) History of pituitary tumor (Chronic) BPH (benign prostatic hyperplasia) (Chronic) CAD (coronary artery disease) (Chronic) Essential (primary) hypertension (Chronic) H/O coronary artery bypass surgery (Chronic 08/22/13) CABG x 2 -ALEGRE to LAD, SVG to PDA 08/22/13 Atherosclerotic heart disease of [place] coronary artery without angina pectoris (Chronic) CABG x 2 -ALEGRE to LAD, SVG to PDA 08/22/13 Hyperlipidemia (Chronic) Hospital Course and Treatment Dr. Borja/Dr. Morales Cardiology Operations: None, - - cabg Procedures: EKG, Stress test Summary of Care Provided: The patient is a 84 y/o M w/ PMHx: CAD s/p CABG x 2 ALEGRE to LAD and SVG to PDA 2013, HTN, HLD, Hypothyroidism, Hx CVA, Hx Pituitary Tumor s/p resection and radiation on chronic steroid therapy, Hx PE who presented to the [facility] ED on 05/12/19 with history of onset of decided with radiation to the midsternal chest discomfort described as a dull aching, 5 out of 10 in severity with diaphoresis. EKG in ED sinus bradycardia cardia with no acute evidence of ischemia, CXR w/ questionable left lung base increased markings, initial trop x1. Admitted to the PCU, placed on a monitored bed to assure no acute myocardial infarction with serial cardiac enzymes and EKGs which remain similar. Echocardiogram obtained with normal LV size, normal LV systolic function, EF 65% with no regional wall motion abnormalities. 05/13/19 cardiac stress testing with nuclear images demonstrating the appearance of diminished myocardial perfusion/tracer uptake following stress and portions of the distal anterior and apical areas compatible with area of stress-induced myocardial ischemia, EF 65%. ASA, morphine. Cautiously used nitroglycerin given likely caused hypotensive syncopal event. Cardiology consulted, given abnormal cardiac stress testing, with lengthy discussion with Dr. Borja and Dr. Silva with decision for continued medical management with addition of Imdur and plan close outpatient follow-up with Dr. Morales. Encourage patient to continue follow-up with orthopedic surgeon for injury to right shoulder status post fall with concern for rotator cuff injury. Patient discharged home in improved condition with no recurrent chest pain with planned continuation of Imdur upon discharge with follow-up with primary care physician as well as cardiology. DAY OF DISCHARGE PROGRESS NOTE: Subjective: Patient without acute event overnight per self and nursing report. Patient had no recurrent chest discomfort and discussed abnormal stress testing finding at length with Dr. Borja and Dr. Morales, cardiology with decision for continued medical management, addition of Imdur and close follow-up outpatient. Patient denies fever, chills, nausea, emesis, abdominal pain, dyspnea. Patient agreeable to discharge to home. Patient will be discharged with follow-up with primary care physician within 3-5 days in addition to follow-up with cardiology in 2 weeks. Objective: T 97.7, heart rate 54, BP 96/59, respiratory rate 16, 95% on room air. Physical Examination: General: awake, alert, oriented x 3 and cooperative, seated upright in the PCU bed, no acute distress, no recurrent chest discomfort. Skin: normal color, turgor, no icterus, cyanosis. HEENT: AT/NC, EOMI, PERRLA, MMM. Lungs: CTA bilaterally, moderate effort, moderate decrease BL bases, no rales, ronchi or wheezing. Heart: Bradycardic with regular rhythm; no gallop, rub audible. Abdomen: soft, obese, NTTP, ND, normal BS. Extremities: no cyanosis, clubbing, mild bilateral ankle nonpitting edema. Neurological: patient awake, alert, oriented x 3; cognitive function intact; pupils equally reactive to light and accomodation; cranial nerves II-XII grossly normal, moving all 4 extremities however limitation to the right upper extremity given recent history of fall with shoulder pain, difficulty raising above 90 degrees with pending outpatient orthopedic surgery evaluation, strength improved, mildly global decrease. Psychiatric: affect appears normal, no acute evidence of depressive or anxiety feelings. Assessment and Plan: Please see hospital summary above. Patient Problems: Active and Suspected Problems (Last Reviewed 10/24/18 @ 09:07 by Kolby Morales MD) Chest pain (Acute) Near syncope (Acute) Abnormal stress test (Acute) - Physical Exam Vitals/I&O's: Vital Signs Temp Pulse Resp BP Pulse Ox 97.7 F L 54 L 16 97/52 L 95 05/14/19 08:33 05/14/19 10:48 05/14/19 08:33 05/14/19 10:48 05/14/19 09:17 Oxygen Delivery Method Room Air Weight: 196 lb 6.91 oz Body Mass Index (BMI) 30.7 Finger Stick Blood Glucose 102 Intake and Output for Last 24 Hours 05/12/19 05/13/19 05/14/19 23:59 23:59 23:59 Intake Total 1123.33 / 1723.33 3685 / 3685 1000 / 1000 Balance 1123.33 / 1723.33 3685 / 3685 1000 / 1000 Laboratory Results 05/14/19 05:05: WBC 6.5, RBC 4.37 L, Hgb 14.6, Hct 42.5, MCV 97.3 H, MCH 33.4 H, MCHC 34.4, RDW Std Deviation 52.4 H, RDW Coeff of Viviana 14.5, Plt Count 177, MPV 9.8, Immature Gran % (Auto) 2.000 H, Neut % (Auto) 55.2, Lymph % (Auto) 24.2, [place] % (Auto) 12.9 H, Eos % (Auto) 4.6, Baso % (Auto) 1.1 H, Absolute Neuts (auto) 3.6, Absolute Lymphs (auto) 1.57, Nucleated RBC % 0 05/14/19 05:05: PT 14.6, INR 1.2, APTT 35.2 05/14/19 05:05: Sodium 141, Potassium 4.1, Chloride 112 H, Carbon Dioxide 23.0, Anion Gap 6, BUN 20 H, Creatinine 1.13, Estim Creat Clear Calc 44.68, Est GFR (MDRD) Af Amer 79, Est GFR (MDRD) Non-Af 66, BUN/Creatinine Ratio 17.7, Glucose 78, Calcium 7.7 L Current Medications Acetaminophen (Tylenol) 650 mg PO Q6H PRN PRN PRN Reason: Non-cardiac pain (4-03/20) Hydrocodone Bitart/Acetaminophen ([place] 5mg-325mg) 1 - 2 tablet PO Q4H PRN PRN PRN Reason: Pain Score 4-10 Al Hydroxide/Mg Hydroxide (Mylanta Ii) 15 - 30 ml PO Q4H PRN PRN PRN Reason: INDIGESTION Albuterol Sulfate (Ventolin Aerosols) 2.5 mg INHALATION Q2H PRN PRN PRN Reason: dyspnea, wheezing Aspirin (Ecotrin) 81 mg PO DAILY@0800 [facility] Last Admin: 05/14/19 08:49 Dose: 81 mg Documented by: Clopidogrel Bisulfate (Plavix) 75 mg PO DAILY [facility] Last Admin: 05/14/19 08:50 Dose: 75 mg Documented by: Dextrose (D50w Syringe) 0 gm IV X1 PRN; Protocol PRN Reason: Hypoglycemia Enoxaparin Sodium (Lovenox) 40 mg SC DAILY [facility] Last Admin: 05/14/19 08:49 Dose: Not Given Documented by: Finasteride (Proscar) 5 mg PO DAILY [facility] Last Admin: 05/14/19 08:50 Dose: 5 mg Documented by: Glucagon () 1 mg IM .X1 PRN PRN Reason: Hypoglycemia Hydralazine HCl (Apresoline Iv) 10 mg IV Q4H PRN PRN PRN Reason: SBP > 160 Sodium Chloride () 1,000 mls @ 100 mls/hr IV .Q10H [facility] Last Admin: 05/14/19 05:59 Dose: 100 mls/hr Documented by: Isosorbide Mononitrate (Imdur) 30 mg PO DAILY [facility] Last Admin: 05/13/19 18:13 Dose: 30 mg Documented by: Levothyroxine Sodium (Synthroid) 88 mcg PO DAILY@0600 [facility] Last Admin: 05/14/19 05:59 Dose: 88 mcg Documented by: Magnesium Hydroxide (Milk Of Magnesia) 30 ml PO DAILY PRN PRN Reason: Constipation Melatonin (Melatonin) 3 mg PO QHS PRN PRN PRN Reason: INSOMNIA Morphine Sulfate () 1 - 2 mg IV Q4H PRN PRN PRN Reason: Pain Score 1-10/10 Nitroglycerin (Nitrostat) 0.4 mg SUBLINGUAL Q5M PRN PRN Reason: CARDIAC/CHEST PAIN Ondansetron HCl (Zofran) 4 mg IV Q8H PRN PRN PRN Reason: NAUSEA/VOMITING Prednisone () 5 mg PO DAILY@0800 [facility] Last Admin: 05/14/19 08:49 Dose: 5 mg Documented by: Sodium Chloride () 10 - 40 ml IV UD PRN PRN Reason: SALINE FLUSH Tamsulosin HCl (Flomax) 0.4 mg PO DAILY@0830 [facility] Last Admin: 05/14/19 08:49 Dose: 0.4 mg Documented by: Discharge Activity: - - Avoid aggressive activity until evaluation per Orthopedic surgery, avoid aggressive weight bearing until evaluation. Weight Bearing Status: Weight bearing as tolerated Call your doctor if you observe: Fever of 101 or Higher, Inability to urinate, Inability to have a bowel movement, Shortness of breath, Dizziness, Fainting spells, Chest pain, Uncontrolled pain Home Medications: Medications to take at Discharge Levothyroxine [Synthroid] 88 mcg PO DAILY 08/19/13 Tamsulosin HCl [Flomax] 0.4 mg PO DAILY 08/19/13 Clopidogrel Bisulfate [Clopidogrel] 75 mg PO DAILY 06/12/17 Finasteride [Proscar] 5 mg PO DAILY 06/12/17 Prednisone 5 mg PO DAILY 06/12/17 Vitamin E 400 units PO DAILY 09/03/17 coenzyme Q10 10 mg capsule 10 mg PO QDAY cap 10/17/17 nitroglycerin 0.4 mg sublingual tablet 0.4 mg SUBLINGUAL Q5-15M PRN #25 tab 10/03/18 omega 2-oco-seu-fish oil 1,000 mg (120 mg-180 mg) capsule 1 cap PO DAILY 10/24/18 testosterone cypionate 200 mg/mL intramuscular oil 200 mg IM X1 84 Days ml 10/24/18 Aspirin E.C. [Ecotrin] 81 mg PO DAILY@0800 tablet 05/14/19 Isosorbide Mononitrate [Imdur] 30 mg PO DAILY #30 tab 05/14/19 Following Prescrptions Were Given to Patient: Isosorbide Mononitrate [Imdur] 30 mg PO DAILY #30 tab Transmission Status: Pending to [facility] #30 Primary Care Physician: Raina Rae MD [Primary Care Provider] - Please follow up with your Primary Care Physician in: Follow-up within 3 to 5 days to review admission. Please Follow Up With: Kolby Morales MD When: Follow-up in 2 weeks for reevaluation. Please Follow Up With: Orthopedic Surgeon When: Please keep your arranged visit with orthopedic surgery for R shoulder. Patient Instructions: Isosorbide Mononitrate Oral tablet, extended-release, What Is Angina? Disposition: Home Minutes spent on discharge:: 35 Patient Condition:: Fair Medical Necessity - Tobacco Use Smoking Status: Former smoker - He notes that he smoked minimally, quit 40 years prior and this was rare. Tobacco Use: Non-smoker Meaningful Use Info Meaningful Use Diagnoses (Choose all that apply): None applicable Code Visit OBSV E&M: 98434 Observation care discharge
--- NOTE | 2019-05-14 13:11 | CASEMGMT ---
SW spoke w/pt about LW/POA, as the forms are not on file. Pt indicated he has not completed the forms and would like to complete them now. SW assisted pt in completing POA, however did not have enough time to complete LW prior to pt being discharged. SW explained will mail the forms to him and he can make an appt with the SW department to complete the LW. [facility] mailed pt the original POA form, a copy, and a copy of the LW with the rack card to call and make an appointment. Copy of POA placed on pt's chart. TREVER Quesada
== END 2019-05-14 11:24 | disposition home or self-care (01) ==
LOC: ED 11:32 → PCU 12:20
PROVIDERS: Admitting Provider Family Medicine; Emergency Provider Emergency Medicine; Family Provider Internal Medicine; PCP Internal Medicine; Referring Provider Family Medicine; Visit Provider Family Medicine
DX: R07.89 Other chest pain (principal); R55 Syncope and collapse; R94.39 Abnormal result of other cardiovascular function study; R00.1 Bradycardia, unspecified; E03.9 Hypothyroidism, unspecified; N40.0 Benign prostatic hyperplasia without lower urinary tract symptoms; I10 Essential (primary) hypertension; I25.10 Atherosclerotic heart disease of native coronary artery without angina pectoris; E23.0 Hypopituitarism; E78.5 Hyperlipidemia, unspecified; Z79.899 Other long term (current) drug therapy; Z79.02 Long term (current) use of antithrombotics/antiplatelets; Z79.52 Long term (current) use of systemic steroids; Z95.1 Presence of aortocoronary bypass graft; Z86.711 Personal history of pulmonary embolism; Z87.891 Personal history of nicotine dependence
CPT/HCPCS: 36415; 71045; 78452; 80048; 80061; 83735; 84484; 85025; 85610; 85730; 93005; 93017; 93306; 96360; 96361; 97162; 97166; 97530; 99218; 99251; 99285; A9500; J7030; Q9957; A4216; C8929; G0378; G0463

== ENCOUNTER → 2019-10-22 07:44 | Outpatient (CLI) | payer MEDICARE, SELFPAY ==
[2019-10-13 09:29] VITALS: BMI 29.9
[2019-10-22 08:58] LABS: AST(SGOT) 21 U/L (15-37); Alanine Aminotransfer ALT/SGPT 30 U/L (16-61); Albumin, Serum 3.3 g/dL (3.2-5.0); Alkaline Phosphatase 38 U/L (45-117); Bilirubin, Direct 0.18 mg/dL (0.00-0.30); Cholesterol 178 mg/dL (200); Globulin 3.2 g/dL (2.2-4.2); High Density Lipoprotein 60 mg/dL; Protein, Total 6.5 g/dL (6.4-8.2); Triglycerides 129 mg/dL; Very Low Density Lipoprotein 26 mg/dL (5-40)
== END ==
LOC: LAB 07:46
PROVIDERS: PCP Internal Medicine; Referring Provider Physician Assistant Medical; Visit Provider Physician Assistant Medical
DX: I25.10 Atherosclerotic heart disease of native coronary artery without angina pectoris (principal); I10 Essential (primary) hypertension; E78.00 Pure hypercholesterolemia, unspecified
CPT/HCPCS: 36415; 80061; 80076

== ENCOUNTER 2023-10-01 10:08 | Emergency (ER) | payer MEDICARE, SELFPAY ==
[2023-10-01 10:09] VITALS: BP 139/65; PULSE 73; RESP 18; TEMP 36.4; O2SAT 98; BMI 28.1
--- NOTE | 2023-10-01 10:21 | US_ITS ---
STUDY: ABDOMINAL ULTRASOUND - RIGHT UPPER QUADRANT REASON FOR VISIT: Male, 88 years old abdomen pain TECHNIQUE: Ultrasound evaluation of the right upper quadrant was performed with real-time and static hahn-scale imaging. TECHNICAL QUALITY: Adequate. COMPARISON: None. FINDINGS: Liver: The liver is mildly enlarged and measures 17 cm. There is increased echogenicity consistent with fatty infiltration. The bile ducts are within normal limits. There is hepatic color flow. The direction of portal flow is hepatopetal. There is a 9.5 cm x 10 cm x 7.4 cm cyst with septations in the left lobe liver. There is also evidence of a 3.4 cm x 3.1 cm x 3.3 cm complex septated cyst in the inferior aspect of the right lobe at its liver. Gallbladder: Normal distended gallbladder. The gallbladder wall measures 3.1 mm. There is a negative sonographic Carbone''s sign. There is no pericholecystic fluid. There are no gallstones. Common Bile Duct (C.B.D.): The common bile duct measures 3.9 mm. Pancreas: There is nonvisualization of the pancreas. Right Kidney: Normal size of the right kidney. The right kidney measures 9.1 cm x 4.6 cm x 4.2 cm. Normal renal cortex. The right cortex measures 0.9 cm. There is no demonstrated renal mass or cyst. There is no right hydronephrosis. US/Gallbladder IMPRESSION: Hepatomegaly. Fatty infiltration of the liver. Dominant cyst in the right and left lobe liver with evidence of septations. Electronically Signed: Spencer Garcia MD at 13:06 EDT ,
--- NOTE | 2023-10-01 10:22 | EDS_ITS ---
HPI HPI - GI History of Present Illness Chief Complaint: Abd Pain Detail of Chief Complaint: Abdominal pain Informant: patient and spouse/S.O. Narrative Narrative: Patient presents to the emergency department complaint of abdominal pain that started initially couple weeks ago. He was seen by nurse practitioner who started him on Prilosec. Patient states that this morning after eating breakfast he had worsening pain and early satiety. Patient has had no nausea or vomiting. He had no fever. No history of peptic ulcer disease. Denies any blood in the stool or black tarry stools. [facility] Medical History Atherosclerotic heart disease of [place] coronary artery without angina pectoris BPH (benign prostatic hyperplasia) CKD (chronic kidney disease), stage III CVA (cerebral vascular accident) Essential (primary) hypertension H/O: pituitary tumor History of pituitary tumor History of venous thromboembolism Hyperlipidemia Hypothyroidism Hypothyroidism Ischemic cerebrovascular accident (CVA) Panhypopituitarism Pulmonary embolism (09/04/13) Syncope Home Medications levothyroxine 88 mcg tablet 88 mcg PO DAILY thyroid 08/19/13 [History Last Taken 08/18/20] tamsulosin 0.4 mg capsule 0.4 mg PO DAILY prostate 08/19/13 [History Last Taken 08/18/20] finasteride 5 mg tablet 5 mg PO DAILY prostate 06/12/17 [History Last Taken 08/18/20] coenzyme Q10 10 mg capsule (Co Q-10) 10 mg PO DAILY supplement 10/17/17 [History Last Taken Unknown] omega 1-pgd-rio-fish oil 1,000 mg (120 mg-180 mg) capsule (Fish Oil) 1 cap PO DAILY supplement 10/24/18 [History Last Taken Unknown] testosterone cypionate 200 mg/mL intramuscular oil 0.5 ml IM Q14D 84 days 10/24/18 [History Last Taken 08/12/20] clopidogrel 75 mg tablet 75 mg PO DAILY blood thinner 08/18/20 [History Last Taken 08/18/20] magnesium oxide 250 mg PO DAILY 12/29/21 [History Last Taken Unknown] prednisone 5 mg tablet 5 mg PO DAILY 12/29/21 [History Last Taken Unknown] rosuvastatin 5 mg tablet (Crestor) 5 mg PO DAILY 12/29/21 [History Last Taken Unknown] cholecalciferol (vitamin D3) 25 mcg (1,000 unit) capsule 25 mcg PO DAILY 08/16/23 [History Last Taken Unknown] nitroglycerin 0.4 mg sublingual tablet 0.4 mg sublingual Q5M PRN chest pain #25 tabs 08/16/23 [Rx Last Taken Unknown] omeprazole 20 mg capsule,delayed release 20 mg PO DAILY 10/01/23 [History Last Taken Unknown] Allergy/AdvReac Type Severity Reaction Status Date / Time atorvastatin calcium Allergy LEG CRAMPS Verified 10/01/23 10:09 [From Lipitor] shrimp Allergy Hives Verified 10/01/23 10:09 Family History Mother CAD (coronary artery disease) Diabetes Grandmother CAD (coronary artery disease) Diabetes Grandfather CAD (coronary artery disease) Father No problems noted. 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) H/O hernia repair H/O hernia repair History of pituitary tumor History of surgical removal of pituitary gland Social History Smoking Status: Former smoker alcohol intake: never substance use type: does not use caffeine: Yes Type: coffee Number of servings: 3 what type of physical activity do you participate in: none seatbelt use: always do you feel safe at home: Yes ROS ROS ED Review of Systems ROS Unobtainable: other Constitutional Constitutional ED: Reports lethargy; Denies chills, fever(s), sweats or weight loss Eyes Eyes: Denies blurry vision, change in vision or diplopia ENT ENT ED: Denies rhinorrhea or sore throat Cardiovascular Cardiovascular: Denies chest pain, orthopnea or racing heartbeat Respiratory/Chest Respiratory/Chest: Denies cough, dyspnea, dyspnea on exertion, orthopnea or sputum Gastrointestinal Gastrointestinal: Reports abdominal pain; Denies diarrhea, nausea or vomiting Genitourinary Genitourinary ED: Denies dysuria, hematuria or urinary frequency Musculoskeletal Musculoskeletal: Denies arthralgias, back pain, myalgias or neck pain Integumentary Denies abscess, Abrasions or rash Neurologic Neurologic: Denies headache(s) or weakness Psychiatric Psychiatric: Denies anxiety, depression or suicidal thoughts Endocrine Endocrinology: Denies polydipsia, polyphagia or polyuria Hematologic/Lymphatic Hematologic/Lymphatic: Denies easy bleeding, easy bruising or lymphadenopathy Allergic/Immunologic Allergic/Immunologic ED: Denies mouth swelling, tongue swelling or urticaria EXAM Physical Exam Const Vital Signs: 10/01/23 10:09 10/01/23 12:29 10/01/23 14:00 Temperature 97.5 F L 98.2 F Temperature Source Temporal Oral Pulse Rate 73 61 56 L Respiratory Rate 18 16 14 Blood Pressure 139/65 H 130/69 H 149/78 H Blood Pressure Mean 89 89 101 Pulse Ox 98 96 97 Oxygen Delivery Method Room Air Room Air Room Air Positive well nourished and well developed General Appearance ED: well developed and NAD HEENT Reports TM's clear and moist mucous membranes normocephalic and atraumatic; Negative for trauma or tenderness Tympanic Membrane ED: Yes TM's clear Eyes PERRL and EOMs intact bilaterally General Eye ED: Negative for pale conjunctiva or scleral icterus Neck no lymphadenopathy, supple and no JVD General: Negative for tenderness Chest Wall inspection of chest normal and palpation of chest normal Chest: Negative for tenderness Resp normal respiratory effort and clear to auscultation bilaterally Effort and Inspection: Negative for respiratory distress or pain with movement Auscultation: Negative for rhonchi, wheezes or diminished lung sounds Cardio regular rate, regular rhythm, S1 normal heart sound, S2 normal heart sound and no murmurs Peripheral Pulses: pulses 2+ throughout GI normal to inspection, nondistended, normoactive bowel sounds, soft to palpation, non-distended and no masses GI Narrative: Tenderness palpation over the right upper quadrant with guarding. He had a positive Carbone sign. Also some tenderness over the epigastric region. There is no rebound, rigidity, or peritoneal signs. Back/Spine no CVA tenderness and no thoracic nor lumbar tenderness Extremity normal to inspection General Extremety ED: Negative for edema General Extremity: Negative for edema Neuro oriented x3, CN's II-XII intact bilaterally, no sensory deficits noted and gait normal Sensorium / Orientation: awake, alert, oriented to person, oriented to place and oriented to time Motor Exam: strength 5/5 throughout and strength abnormal Psych mental status grossly normal Skin no rashes or lesions noted and no wounds MDM MDM MDM Narrative Medical decision making narrative: Patient presents with 2-week history of abdominal pain. He has had some constipation. On exam tender over the right upper quadrant. In the differential would be gallbladder disease versus peptic ulcer disease versus inflammatory bowel disease or bowel obstruction or other acute process. IV line will be established. He did not anything for pain. Will obtain basic labs and a gallbladder ultrasound to evaluate further. CBC with differential count of 8.5 with hemoglobin 16 and platelet count of 221. Chemistries unremarkable. LFTs unremarkable. BUN 23 and creatinine 1.44. Lipase normal at 52. Lactate was normal at 1.5. Patient had a gallbladder ultrasound that was unremarkable. I did order a CT scan of the abdomen pelvis with IV and p.o. contrast. Report/result pending. Care of patient turned over to evening physician awaiti ng CT result and final disposition. Lab Data Attestation: I reviewed the patient's lab results. Labs: Laboratory Results - last 24 hr 10/01/23 10:30 WBC 8.5 RBC 4.79 Hgb 16.0 Hct 47.2 MCV 98.5 H MCH 33.4 H MCHC 33.9 RDW Std Deviation 53.6 H RDW Coeff of Viviana 14.7 H Plt Count 221 MPV 9.5 Immature Gran % (Auto) 2.200 H Neut % (Auto) 70.2 H Lymph % (Auto) 9.3 L Simpson % (Auto) 15.0 H Eos % (Auto) 2.5 Baso % (Auto) 0.8 Absolute Neuts (auto) 6.0 Absolute Lymphs (auto) 0.79 L Nucleated RBC % 0 Sodium 138 Potassium 3.8 Chloride 106 Carbon Dioxide 29.0 Anion Gap 3 L BUN 23 H Creatinine 1.44 H Estim Creat Clear Calc 36.70 Est GFR (MDRD) Af Amer 59 L Est GFR (MDRD) Non-Af 49 L BUN/Creatinine Ratio 16.0 Glucose 87 Lactic Acid 1.5 Calcium 8.3 L Total Bilirubin 0.60 AST 14 L ALT 16 Alkaline Phosphatase 55 Total Protein 6.4 Albumin 2.9 L Globulin 3.5 Albumin/Globulin Ratio 0.8 L Lipase 52 Radiography Diagnostic Testing: Clinical Impression(s) from Imaging Studies Gallbladder Ultrasound 10/01/23 10:21 IMPRESSION: Hepatomegaly. Fatty infiltration of the liver. Dominant cyst in the right and left lobe liver with evidence of septations. Electronically Signed: Spencer Garcia MD at 13:06 EDT , Discharge Plan Triage Chief Complaint: Abd Pain ED Provider: Willard Sinclair Dx/Rx/DC Orders Clinical Impression: Abdominal pain Prescriptions: No Action coenzyme Q10 [Co Q-10] 10 mg capsule 10 mg PO DAILY testosterone cypionate 200 mg/mL oil 0.5 ml IM Q14D 84 Days Rx Instructions: EVERY 2 WEEKS on . omega 7-euq-jwp-fish oil [Fish Oil] 1,000 mg (120 mg-180 mg) capsule 1 cap PO DAILY magnesium oxide 250 mg magnesium tablet 250 mg PO DAILY prednisone 5 mg tablet 5 mg PO DAILY rosuvastatin [Crestor] 5 mg tablet 5 mg PO DAILY cholecalciferol (vitamin D3) 25 mcg (1,000 unit) capsule 25 mcg PO DAILY nitroglycerin 0.4 mg tablet, sublingual 0.4 mg SL Q5M PRN (Reason: chest pain) Qty: 25 0RF levothyroxine 88 MCG tablet 88 mcg PO DAILY Patient Comments: thyroid tamsulosin 0.4 MG capsule 0.4 mg PO DAILY Patient Comments: prostate finasteride 5 MG tablet 5 mg PO DAILY clopidogrel 75 MG tablet 75 mg PO DAILY omeprazole 20 mg capsule,delayed release(DR/EC) 20 mg PO DAILY Primary Care Provider: Raina Rae Referrals: Raina Rae MD [Primary Care Provider] -
[2023-10-01 10:38] LABS: Absolute Lymphocyte Count 0.79 X10^3/uL (0.83-4.51); Basophil# 0.07 X10^3/uL; Basophil% 0.8 % (0-1); Eosinophil# 0.21 X10^3/uL; Eosinophils% 2.5 % (0-5); Hematocrit 47.2 % (40-54); Lymphocyte # 0.79 X10^3/ul (0.83-4.51); Lymphocyte % 9.3 % (19-41); Mean Corp Hgb Conc 33.9 g/dL (32-36); Mean Corpuscular Hgb 33.4 pg (27.0-32.0); Mean Corpuscular Volume 98.5 fL (80-94); Mean Platelet Vol. 9.5 fl (6.2-12.0); Monocyte# 1.27 X10^3/uL; NRBC Flagged by Analyzer 0 % (0-5); Neutrophil # 5.96 X10^3/uL (2.7-7.7); Neutrophil % 70.2 % (47-70); Platelet Count 221 K/mm3 (150-450); RBC Distribution Width CV 14.7 % (11.6-14.6); RBC Distribution Width SD 53.6 fl (35.1-43.9); Red Blood Count 4.79 M/mm3 (4.6-6.2); White Blood Count 8.5 K/mm3 (4.4-11.0)
[2023-10-01] MEDS: 0.9% Normal Saline (1000mL) 1,000 ML 125 ML IV (10:38)
[2023-10-01 10:55] LABS: ALB/GLOB Ratio 0.8 RATIO (0.9-2.4); AST(SGOT) 14 U/L (15-37); Alanine Aminotransfer ALT/SGPT 16 U/L (16-61); Albumin, Serum 2.9 g/dL (3.2-5.0); Alkaline Phosphatase 55 U/L (45-117); Anion Gap 3 (5-15); BUN 23 mg/dL (7-18); Calcium,Total 8.3 mg/dL (8.5-10.1); Chloride 106 mmol/L (98-107); Creatinine, Serum 1.44 mg/dL (0.70-1.30); EST Glomerular Filtration Rate 49 mL/min (>60); Est Glom Filt Rate - Afr Amer 59 mL/min (>60); Globulin 3.5 g/dL (2.2-4.2); Glucose 87 mg/dL (74-106); Lipase 52 U/L (13-75); Potassium 3.8 mmol/L (3.5-5.1); Protein, Total 6.4 g/dL (6.4-8.2); Sodium Level 138 mmol/L (136-145)
[2023-10-01 11:01] LABS: Lactic Acid 1.5 mmol/L (0.4-1.9)
[2023-10-01 12:29] VITALS: BP 130/69; PULSE 61; RESP 16; TEMP 36.8; O2SAT 96
--- NOTE | 2023-10-01 13:10 | CT_ITS ---
STUDY: CT ABDOMEN AND PELVIS WITH CONTRAST REASON FOR EXAM: Male, 88 years old. Abdominal pain RADIATION DOSAGE (If Supplied By Facility): CTDIvol = ( 15.97 ) mGy, DLP = ( 1533.61 ) mGycm TECHNIQUE: Transaxial images were obtained from the dome of the diaphragm to the symphysis pubis with oral contrast. Oral and amp; IV Gastrografin and amp; 100mL Isovue-300 was administered. Sagittal and coronal images were reconstructed. Individualized dose optimization techniques were used for this CT. COMPARISON: Comparison is made with prior sonogram done earlier in the day. FINDINGS: Mild degree of increased markings at the lung bases slightly more prominent on the left side suggestive of atelectasis and/or early infiltrates. Calcified granuloma in the peripheral aspect of the left lower lobe. Coronary artery calcification. There is decreased attenuation of the liver consistent with steatosis. There is a 3.5 cm x 2.6 cm septated cyst in the peripheral lateral aspect of the right lobe of the liver. There is evidence of a predominantly cystic mass in the left lobe measuring 9.7 cm by 7.3 cm. Septations and soft tissue densities are seen within it. This is not a simple cyst. There is also evidence of a 5.4 mm cyst in the lateral aspect of the midportion of the right lobe of the liver. Normal gallbladder and extrahepatic biliary system. Normal spleen. Normal pancreas. Normal bilateral adrenal glands. 4 mm nonobstructive calculus in the mid upper portion of the right kidney. There is a 6.9 mm cyst in the anterior upper pole of the left kidney. Normal visualized stomach. Normal small intestine. Normal colon. The appendix is visualized and appears normal. There is scattered atherosclerotic calcification of the abdominal aorta, without a demonstrated aneurysm. Normal inferior vena cava. Normal retroperitoneum. Distended urinary bladder. The prostate is enlarged. It measures 5.1 cm x 4.8 cm. This causes indentation at the bladder base. There are small bilateral inguinal hernias containing fat. There are mild degenerative changes of the visualized lumbar spine. CT/Abdomen/Pelvis WITH Contrast IMPRESSION: Diffuse fatty position liver with a large septated cyst in the peripheral lateral aspect of the right lobe of the liver as well as the left lobe. Cyst is seen in the upper pole of the left kidney. Prostatic enlargement with indentation of the bladder base. Distended urinary bladder. Electronically Signed: Spencer Garcia MD at 15:22 EDT ,
[2023-10-01 14:00] VITALS: BP 149/78; PULSE 56; RESP 14; O2SAT 97
[2023-10-01 15:31] VITALS: BP 133/79; PULSE 62; RESP 18; TEMP 36.8; O2SAT 97
== END 2023-10-01 15:32 | disposition home or self-care (01) ==
PROVIDERS: Emergency Provider Emergency Medicine; PCP Internal Medicine; Visit Provider Emergency Medicine
DX: R10.811 Right upper quadrant abdominal tenderness (principal); N18.30 Chronic kidney disease, stage 3 unspecified; I12.9 Hypertensive chronic kidney disease with stage 1 through stage 4 chronic kidney disease, or unspecified chronic kidney disease; I25.10 Atherosclerotic heart disease of native coronary artery without angina pectoris; E78.5 Hyperlipidemia, unspecified; N40.0 Benign prostatic hyperplasia without lower urinary tract symptoms; Z95.5 Presence of coronary angioplasty implant and graft; Z79.02 Long term (current) use of antithrombotics/antiplatelets; Z79.52 Long term (current) use of systemic steroids; Z79.899 Other long term (current) drug therapy; Z86.73 Personal history of transient ischemic attack (TIA), and cerebral infarction without residual deficits; Z87.891 Personal history of nicotine dependence
CPT/HCPCS: 74177; 76705; 80053; 83605; 83690; 85025; 96360; 96361; 99283; J7030; Q9967; A4216